=== PATIENT | male | born 1965 | race African-American/Black ===

== ENCOUNTER 2023-06-09 15:03 | Observation (INO) | payer OTHER ==
[2023-06-09 15:44] VITALS: BMI 25.1
[2023-06-09] MEDS ORDERED: SODIUM CHLORIDE 0.9% 500 ML INFUS.BAG IV ONE (15:55)
[2023-06-09] MEDS ORDERED: ACETAMINOPHEN 1000 MG/100 ML BAG IVPB ONE (15:55)
[2023-06-09 16:52] LABS: BASO % 0.8 % (0-2.0); EOS % 0.9 % (0-4.5); HEMATOCRIT 33.8 % (35.4-49); HEMOGLOBIN 10.9 GM/dL (11.7-16.9); LYMPH % 12.1 % (8-40); MCH 29.9 pg (25.7-33.7); MCHC 32.3 g/dl (32.0-35.9); MEAN CELL VOLUME 92.8 fl (80-96); MEAN PLT VOLUME 9.1 fl (7.5-11.1); MONO % 12.7 % (3.8-10.2); NEUT % 73.5 % (42.8-82.8); PLATELET COUNT 198 10^3/uL (134-434); RBC 3.64 M/mm3 (4.00-5.60); RDW 18.1 % (11.9-15.9); VENOUS BASE EXCESS 4.5 mmol/L (-2-2); VENOUS O2 SATURATION 25.4 % (70-80); VENOUS PCO2 49.7 mmHg (38-52); VENOUS PH 7.401 (7.310-7.410); WHITE BLOOD COUNT 10.3 K/mm3 (4.0-10.0)
[2023-06-09] MEDS ORDERED: ACETAMINOPHEN INJECTION 100 ML IVPB ONE (16:56)
[2023-06-09 17:02] LABS: INR 1.16 (0.83-1.09); PROTHROMBIN TIME (PATIENT) 13.4 SEC (9.7-13.0)
[2023-06-09 17:04] LABS: ACTIVATED PTT 34.6 SECONDS (25.2-36.5)
[2023-06-09 17:18] LABS: CHLORIDE 98 mmol/L (98-107); POTASSIUM 5.1 mmol/L (3.5-5.1); SODIUM 140 mmol/L (136-145)
[2023-06-09 17:20] LABS: ALBUMIN 2.7 g/dl (3.4-5.0); ANION GAP 11 mmol/L (4-13); BLOOD UREA NITROGEN 38.3 mg/dL (7-18); CALCIUM 9.1 mg/dL (8.5-10.1); CO2 30 mmol/L (21-32); GLUCOSE,RANDOM 80 mg/dL (74-106)
[2023-06-09 17:23] LABS: SGOT/AST 12 U/L (15-37); SGPT/ALT 8 U/L (13-61)
[2023-06-09 17:25] LABS: BILIRUBIN,TOTAL 0.4 mg/dL (0.2-1); TOT PROT 7.8 g/dl (6.4-8.2)
[2023-06-09 17:26] LABS: ALK PHOS 81 U/L (45-117)
[2023-06-10] MEDS: VITAMIN B COMP W-C 1 EA TABLET (NEPHRO-VITE) PO SCH (09:40)
[2023-06-10] MEDS: ASPIRIN 81 MG CHEWABLE TABLETS PO SCH (09:40)
[2023-06-10] MEDS: FERROUS SO4 325 MG TABLET (FP) PO SCH (09:40)
[2023-06-10] MEDS: SERTRALINE HCL 25 MG TABLET (FP) PO SCH (09:40)
[2023-06-10] MEDS: DIVALPROEX SODIUM 250 MG TABLET E.C. PO SCH ×2 (09:40→21:19)
[2023-06-10] MEDS: SEVELAMER CARBONATE 800 MG TAB (FP) PO SCH ×3 (09:40→17:36)
[2023-06-10] MEDS: GABAPENTIN 100 MG CAPSULE PO SCH ×3 (09:40→21:19)
[2023-06-10 10:58] LABS: CHLORIDE 103 mmol/L (98-107); SODIUM 143 mmol/L (136-145)
[2023-06-10 10:59] LABS: BASO % 0.7 % (0-2.0); EOS % 1.7 % (0-4.5); HEMATOCRIT 30.8 % (35.4-49); LYMPH % 13.4 % (8-40); MCH 30.4 pg (25.7-33.7); MCHC 32.5 g/dl (32.0-35.9); MEAN CELL VOLUME 93.5 fl (80-96); MEAN PLT VOLUME 9.5 fl (7.5-11.1); MONO % 13.6 % (3.8-10.2); NEUT % 70.6 % (42.8-82.8); PLATELET COUNT 173 10^3/uL (134-434); RDW 17.5 % (11.9-15.9); WHITE BLOOD COUNT 8.7 K/mm3 (4.0-10.0)
[2023-06-10 11:02] LABS: CALCIUM 8.7 mg/dL (8.5-10.1)
[2023-06-10 11:03] LABS: ALBUMIN 2.5 g/dl (3.4-5.0); ANION GAP 15 mmol/L (4-13); BLOOD UREA NITROGEN 46.5 mg/dL (7-18); CO2 25 mmol/L (21-32); GLUCOSE,RANDOM 76 mg/dL (74-106)
[2023-06-10 11:06] LABS: SGOT/AST 12 U/L (15-37); SGPT/ALT 7 U/L (13-61)
[2023-06-10 11:07] LABS: TOT PROT 6.8 g/dl (6.4-8.2)
[2023-06-10 11:08] LABS: BILIRUBIN,TOTAL 0.4 mg/dL (0.2-1)
[2023-06-10 11:09] LABS: ALK PHOS 70 U/L (45-117)
[2023-06-10 11:18] LABS: CREATININE 9.2 mg/dL (0.55-1.3)
[2023-06-10] MEDS: TICAGRELOR 60 MG TABLET PO SCH ×2 (12:02→21:20)
[2023-06-10] MEDS: POLYETHYLENE GLYCOL (HEALTHYLAX) 3350 17 GM PACKET PO SCH ×2 (13:15→21:18)
[2023-06-10] MEDS ORDERED: EPOETIN ALFA-EPBX 4,000 UNIT/ML VIAL SQ ONE (18:26)
[2023-06-10] MEDS: ATORVASTATIN CA 80 MG TABLET (FP) PO SCH (21:18)
[2023-06-10] MEDS: MIRTAZAPINE 15 MG TABLET (FP) PO SCH (21:18)
[2023-06-10] MEDS: MELATONIN 1 MG TABLET PO SCH (21:19)
[2023-06-11] MEDS: GABAPENTIN 100 MG CAPSULE PO SCH ×3 (05:16→22:00)
[2023-06-11] MEDS: POLYETHYLENE GLYCOL (HEALTHYLAX) 3350 17 GM PACKET PO SCH ×3 (05:16→22:00)
[2023-06-11 10:11] LABS: HEMATOCRIT 25.7 % (35.4-49); HEMOGLOBIN 8.4 GM/dL (11.7-16.9); MCH 30.1 pg (25.7-33.7); MCHC 32.6 g/dl (32.0-35.9); MEAN CELL VOLUME 92.6 fl (80-96); MEAN PLT VOLUME 9.4 fl (7.5-11.1); PLATELET COUNT 140 10^3/uL (134-434); RBC 2.78 M/mm3 (4.00-5.60); RDW 17.9 % (11.9-15.9); WHITE BLOOD COUNT 9.3 K/mm3 (4.0-10.0)
[2023-06-11] MEDS ORDERED: EPOETIN ALFA-EPBX 2,000 UNIT/ML VIAL IVPUSH ONE (10:15)
[2023-06-11] MEDS ORDERED: SODIUM CHLORIDE 250 ML IV PRN (10:15)
[2023-06-11] MEDS ORDERED: VANCOMYCIN/WATER FOR INJ (PEG) 1,000 MG/200 ML BAG IVPB ONE (10:16)
[2023-06-11 10:29] LABS: CHLORIDE 105 mmol/L (98-107); POTASSIUM 5.1 mmol/L (3.5-5.1); SODIUM 140 mmol/L (136-145)
[2023-06-11 10:30] LABS: CALCIUM 8.4 mg/dL (8.5-10.1)
[2023-06-11 10:31] LABS: ANION GAP 11 mmol/L (4-13); CO2 25 mmol/L (21-32); GLUCOSE,RANDOM 106 mg/dL (74-106); MAGNESIUM 2.6 mg/dL (1.8-2.4)
[2023-06-11 10:33] LABS: BLOOD UREA NITROGEN 56.8 mg/dL (7-18)
[2023-06-11 10:57] LABS: CREATININE 10.4 mg/dL (0.55-1.3)
[2023-06-11] MEDS: SEVELAMER CARBONATE 800 MG TAB (FP) PO SCH ×3 (13:11→16:30)
[2023-06-11] MEDS: DIVALPROEX SODIUM 250 MG TABLET E.C. PO SCH ×2 (13:11→21:59)
[2023-06-11] MEDS: FERROUS SO4 325 MG TABLET (FP) PO SCH (13:11)
[2023-06-11] MEDS: SERTRALINE HCL 25 MG TABLET (FP) PO SCH (13:12)
[2023-06-11] MEDS: VITAMIN B COMP W-C 1 EA TABLET (NEPHRO-VITE) PO SCH (13:12)
[2023-06-11] MEDS: ASPIRIN 81 MG CHEWABLE TABLETS PO SCH (13:12)
[2023-06-11] MEDS: TICAGRELOR 60 MG TABLET PO SCH ×2 (13:15→21:59)
[2023-06-11 21:04] LABS: SYPHILIS W/ RPR CONF REACTIVE (NONREACTIVE)
[2023-06-11] MEDS: MELATONIN 1 MG TABLET PO SCH (21:59)
[2023-06-11] MEDS: ATORVASTATIN CA 80 MG TABLET (FP) PO SCH (22:00)
[2023-06-11] MEDS: MIRTAZAPINE 15 MG TABLET (FP) PO SCH (22:00)
[2023-06-11 23:46] VITALS: BP 137/80; PULSE 72; RESP 18; TEMP 98.6
== END 2023-06-11 23:40 ==
LOC: JER 15:03 → JERBED 06-10 03:53 → J5S 06-10 06:35
PROVIDERS: ADMIT Internal Medicine; ATTEND Family Medicine
PROC: 3E033NZ Introduction of Analgesics, Hypnotics, Sedatives into Peripheral Vein, Percutaneous Approach (ICD-10-PCS; principal; 2023-06-10)
PROC: 3E033GC Introduction of Other Therapeutic Substance into Peripheral Vein, Percutaneous Approach (ICD-10-PCS; 2023-06-10)
PROC: 3E0337Z Introduction of Electrolytic and Water Balance Substance into Peripheral Vein, Percutaneous Approach (ICD-10-PCS; 2023-06-10)
PROC: 3E03329 Introduction of Other Anti-infective into Peripheral Vein, Percutaneous Approach (ICD-10-PCS; 2023-06-10)
DX: G93.41 Metabolic encephalopathy (principal); N18.6 End stage renal disease; I69.354 Hemiplegia and hemiparesis following cerebral infarction affecting left non-dominant side; E78.5 Hyperlipidemia, unspecified; G40.909 Epilepsy, unspecified, not intractable, without status epilepticus; I50.9 Heart failure, unspecified; K21.9 Gastro-esophageal reflux disease without esophagitis; Z99.2 Dependence on renal dialysis; F32.9 Major depressive disorder, single episode, unspecified; D64.9 Anemia, unspecified; K59.00 Constipation, unspecified; E11.9 Type 2 diabetes mellitus without complications; Z95.1 Presence of aortocoronary bypass graft; I25.10 Atherosclerotic heart disease of native coronary artery without angina pectoris; Z88.8 Allergy status to other drugs, medicaments and biological substances
CPT/HCPCS: 0241U-QW; 36415; 70450-TC; 71045-TC-FY; 74177-TC; 76705-TC; 80048; 80053; 80164; 82140; 82607; 82803; 83605; 83735; 84443; 84484; 85025; 85027; 85610; 85730; 86593; 86704; 86780; 86803; 86850; 86900; 86901; 87040; 87340; 87517; 93005; 93010; 96361; 96365; 96375; 99285-25; G0378; G0480; Q5106; Q9967

== ENCOUNTER 2023-09-08 14:02 | Inpatient (IN) | payer OTHER ==
[2023-09-08 14:54] LABS: BASO % 0.5 % (0-2.0); EOS % 0.5 % (0-4.5); HEMATOCRIT 35.4 % (35.4-49); HEMOGLOBIN 11.1 GM/dL (11.7-16.9); LYMPH % 9.5 % (8-40); MCH 28.2 pg (25.7-33.7); MCHC 31.4 g/dl (32.0-35.9); MEAN CELL VOLUME 89.8 fl (80-96); MEAN PLT VOLUME 7.8 fl (7.5-11.1); MONO % 6.5 % (3.8-10.2); PLATELET COUNT 289 10^3/uL (134-434); RBC 3.94 M/mm3 (4.00-5.60); RDW 18.9 % (11.9-15.9); WHITE BLOOD COUNT 9.6 K/mm3 (4.0-10.0)
[2023-09-08 15:02] LABS: INR 1.34 (0.83-1.09); PROTHROMBIN TIME (PATIENT) 15.5 SEC (9.7-13.0)
[2023-09-08 15:04] LABS: ACTIVATED PTT 38.8 SECONDS (25.2-36.5)
[2023-09-08 15:17] LABS: CHLORIDE 98 mmol/L (98-107); POTASSIUM 5.7 mmol/L (3.5-5.1); SODIUM 139 mmol/L (136-145)
[2023-09-08 15:19] LABS: ALBUMIN 1.9 g/dl (3.4-5.0); CALCIUM 9.2 mg/dL (8.5-10.1)
[2023-09-08 15:20] LABS: ANION GAP 16 mmol/L (4-13); CO2 26 mmol/L (21-32)
[2023-09-08 15:21] LABS: GLUCOSE,RANDOM 98 mg/dL (74-106)
[2023-09-08 15:23] LABS: SGOT/AST 70 U/L (15-37); SGPT/ALT 17 U/L (13-61)
[2023-09-08 15:24] VITALS: BMI 19.9
[2023-09-08 15:24] LABS: CHOLESTEROL 147 mg/dL (50-200); TOT PROT 7.6 g/dl (6.4-8.2)
[2023-09-08 15:25] LABS: LDL CHOLESTEROL (ONLY SJRH) 83 mg/dL (5-100)
[2023-09-08 15:26] LABS: BILIRUBIN,TOTAL 0.4 mg/dL (0.2-1)
[2023-09-08 15:27] LABS: HDL CHOLESTEROL 35 mg/dL (40-60)
[2023-09-08 15:28] LABS: ALK PHOS 81 U/L (45-117)
[2023-09-08 15:56] LABS: CREATININE 11.8 mg/dL (0.55-1.3)
[2023-09-08] MEDS ORDERED: SODIUM CHLORIDE 250 ML IV PRN (16:09)
[2023-09-08 17:02] LABS: CHLORIDE 97 mmol/L (98-107); POTASSIUM 4.4 mmol/L (3.5-5.1); SODIUM 139 mmol/L (136-145)
[2023-09-08 17:04] LABS: CALCIUM 8.7 mg/dL (8.5-10.1)
[2023-09-08 17:05] LABS: ANION GAP 17 mmol/L (4-13); BLOOD UREA NITROGEN 88.9 mg/dL (7-18); CO2 25 mmol/L (21-32); GLUCOSE,RANDOM 104 mg/dL (74-106)
[2023-09-08 17:44] LABS: CREATININE 11.9 mg/dL (0.55-1.3)
[2023-09-08] MEDS: VANCOMYCIN ORAL SOLUTION 125 MG/2.5 ML PO SCH (20:54)
[2023-09-08] MEDS ORDERED: DIVALPROEX SODIUM 250 MG TABLET E.C. ONE (22:21)
[2023-09-08] MEDS ORDERED: APIXABAN 2.5 MG TABLET ONE (22:21)
[2023-09-08] MEDS: APIXABAN 2.5 MG TABLET PO SCH (22:28)
[2023-09-08] MEDS: DIVALPROEX SODIUM 250 MG TABLET E.C. PO SCH (22:28)
[2023-09-09] MEDS ORDERED: DIVALPROEX SODIUM 250 MG TABLET E.C. ONE (06:19)
[2023-09-09 07:40] LABS: BASO % 0.7 % (0-2.0); HEMATOCRIT 32.9 % (35.4-49); HEMOGLOBIN 10.4 GM/dL (11.7-16.9); MCH 28.7 pg (25.7-33.7); MCHC 31.7 g/dl (32.0-35.9); MEAN CELL VOLUME 90.6 fl (80-96); MEAN PLT VOLUME 7.8 fl (7.5-11.1); MONO % 10.9 % (3.8-10.2); NEUT % 75.4 % (42.8-82.8); PLATELET COUNT 272 10^3/uL (134-434); RBC 3.64 M/mm3 (4.00-5.60); WHITE BLOOD COUNT 9.9 K/mm3 (4.0-10.0)
[2023-09-09 08:02] LABS: CHLORIDE 98 mmol/L (98-107); POTASSIUM 4.5 mmol/L (3.5-5.1); SODIUM 138 mmol/L (136-145)
[2023-09-09 08:04] LABS: ANION GAP 16 mmol/L (4-13); BLOOD UREA NITROGEN 99.4 mg/dL (7-18); CO2 24 mmol/L (21-32); GLUCOSE,RANDOM 113 mg/dL (74-106)
[2023-09-09 08:09] LABS: MAGNESIUM 3.4 mg/dL (1.8-2.4)
[2023-09-09 08:47] LABS: CREATININE 12.6 mg/dL (0.55-1.3)
[2023-09-09 08:53] LABS: CALCIUM 8.8 mg/dL (8.5-10.1)
[2023-09-09] MEDS: ASPIRIN COATED 81 MG TABLET.EC PO SCH (10:31)
[2023-09-09] MEDS: THIAMINE HCL 100 MG TABLET (FP) PO SCH (10:32)
[2023-09-09] MEDS: SERTRALINE HCL 25 MG TABLET (FP) PO SCH (10:32)
[2023-09-09 14:30] LABS: SYPHILIS W/ RPR CONF REACTIVE (NONREACTIVE)
[2023-09-09] MEDS ORDERED: SODIUM CHLORIDE 250 ML IV PRN (18:02)
[2023-09-09] MEDS: DIVALPROEX SODIUM 250 MG TABLET E.C. PO SCH (21:52)
[2023-09-10 07:58] LABS: BASO % 0.5 % (0-2.0); EOS % 0.8 % (0-4.5); HEMATOCRIT 29.8 % (35.4-49); HEMOGLOBIN 9.9 GM/dL (11.7-16.9); MCH 29.2 pg (25.7-33.7); MCHC 33.1 g/dl (32.0-35.9); MEAN CELL VOLUME 88.3 fl (80-96); MONO % 6.1 % (3.8-10.2); NEUT % 83.6 % (42.8-82.8); PLATELET COUNT 272 10^3/uL (134-434); RBC 3.37 M/mm3 (4.00-5.60); RDW 18.8 % (11.9-15.9); WHITE BLOOD COUNT 9.3 K/mm3 (4.0-10.0)
[2023-09-10 08:10] LABS: CHLORIDE 98 mmol/L (98-107); POTASSIUM 3.7 mmol/L (3.5-5.1); SODIUM 140 mmol/L (136-145)
[2023-09-10 08:12] LABS: ALBUMIN 1.8 g/dl (3.4-5.0); ANION GAP 12 mmol/L (4-13); CALCIUM 8.5 mg/dL (8.5-10.1); CO2 29 mmol/L (21-32)
[2023-09-10 08:13] LABS: GLUCOSE,RANDOM 85 mg/dL (74-106)
[2023-09-10 08:15] LABS: SGOT/AST 20 U/L (15-37)
[2023-09-10 08:16] LABS: SGPT/ALT 12 U/L (13-61)
[2023-09-10 08:17] LABS: BILIRUBIN,TOTAL 0.4 mg/dL (0.2-1)
[2023-09-10 08:18] LABS: ALK PHOS 84 U/L (45-117)
[2023-09-10 08:27] LABS: BLOOD UREA NITROGEN 53.9 mg/dL (7-18); CREATININE 8.1 mg/dL (0.55-1.3)
[2023-09-10] MEDS ORDERED: VALPROATE SODIUM 250 MG/5 ML UNIT DOSE CUP PO SCH (17:45)
[2023-09-10] MEDS: VALPROATE SODIUM 250 MG/5 ML UNIT DOSE CUP PO SCH (21:53)
[2023-09-11] MEDS: VITAMIN B COMP W-C 1 EA TABLET (NEPHRO-VITE) PO SCH (10:28)
[2023-09-11 12:01] LABS: TOTAL IRON BINDING CAPACITY 160 ug/dL (250-450)
[2023-09-11 12:12] LABS: HIV INTERPRETATION NEGATIVE (NEGATIVE)
[2023-09-11 14:07] LABS: IRON SERUM 32 ug/dL (50-175)
[2023-09-12 17:29] LABS: EPI CELLS 9 /uL (0-25.1); HYALINE CASTS 14 /uL (0-3.1); URINE APPEARANCE CLOUDY; URINE BACTERIA >9,000 /uL (0-1359); URINE BILIRUBIN NEGATIVE (NEGATIVE); URINE COLOR YELLOW; URINE GLUCOSE (UA) NEGATIVE (NEGATIVE); URINE KETONE TRACE (NEGATIVE); URINE LEUK ESTERASE 2+ (NEGATIVE); URINE NITRITE NEGATIVE (NEGATIVE); URINE PROTEIN 3+ (NEGATIVE); URINE RBC 7 /uL (0-23.9); URINE UROBILINOGEN 0.2 mg/dL (0.2-1.0); URINE WBC 519 /uL (0-25.8)
[2023-09-12 18:38] LABS: YEAST NONE SEEN (NEGATIVE)
[2023-09-13] MEDS ORDERED: SODIUM CHLORIDE 250 ML IV PRN (13:54)
[2023-09-13] MEDS: ACETAMINOPHEN 325 MG TABLET (FP) PO ONE (14:36)
[2023-09-14 13:27] LABS: HEMATOCRIT 29.7 % (35.4-49); HEMOGLOBIN 9.4 GM/dL (11.7-16.9); MCH 28.3 pg (25.7-33.7); MCHC 31.7 g/dl (32.0-35.9); MEAN CELL VOLUME 89.5 fl (80-96); MEAN PLT VOLUME 7.8 fl (7.5-11.1); PLATELET COUNT 286 10^3/uL (134-434); RBC 3.31 M/mm3 (4.00-5.60); RDW 18.1 % (11.9-15.9); WHITE BLOOD COUNT 11.7 K/mm3 (4.0-10.0)
[2023-09-14 13:50] LABS: CHLORIDE 102 mmol/L (98-107); POTASSIUM 3.9 mmol/L (3.5-5.1); SODIUM 143 mmol/L (136-145)
[2023-09-14 13:54] LABS: CALCIUM 9.2 mg/dL (8.5-10.1)
[2023-09-14 13:55] LABS: ALBUMIN 1.8 g/dl (3.4-5.0); ANION GAP 12 mmol/L (4-13); BLOOD UREA NITROGEN 72.6 mg/dL (7-18); CO2 28 mmol/L (21-32); GLUCOSE,RANDOM 117 mg/dL (74-106)
[2023-09-14 13:57] LABS: SGOT/AST 15 U/L (15-37)
[2023-09-14 13:58] LABS: SGPT/ALT 12 U/L (13-61)
[2023-09-14 13:59] LABS: BILIRUBIN,TOTAL 0.4 mg/dL (0.2-1); TOT PROT 6.7 g/dl (6.4-8.2)
[2023-09-14 14:00] LABS: ALK PHOS 74 U/L (45-117)
[2023-09-14 14:03] LABS: CREATININE 10.6 mg/dL (0.55-1.3)
[2023-09-14 14:25] LABS: BF GLUCOSE (CSF ONLY) 82 mg/dL (40-70)
[2023-09-14 14:57] LABS: CSF APPEARANCE CLEAR (CLEAR); CSF COLOR COLORLESS (COLORLESS); CSF WBC 1 mm3 (0-5)
[2023-09-14] MEDS: D5-1/2NS+20 MEQ KCL - 20 MEQ/1,000 ML INFUS.BAG IV SCH (16:20)
[2023-09-15] MEDS: APIXABAN 2.5 MG TABLET PO SCH (23:10)
[2023-09-16] MEDS ORDERED: SODIUM CHLORIDE 250 ML IV PRN (11:39)
[2023-09-16] MEDS: EPOETIN ALFA-EPBX 4,000 UNIT/ML VIAL IVPUSH ONE (13:00)
[2023-09-16] MEDS: PENICILLIN G BENZATHINE 2,400,000 UNIT/4 ML PFS IM ONE (14:00)
[2023-09-16 15:11] VITALS: BP 132/75; PULSE 82; RESP 17; TEMP 98
[2023-09-20 19:09] LABS: MUMPS AB IGG CSF < 5.0 AU/mL (<=10.9)
== END 2023-09-16 19:02 | DRG 884 ==
LOC: JER 14:02 → JERBED 16:19 → J4S 09-09 15:50 → OBSVTOIN 09-14 07:15
PROVIDERS: ADMIT Internal Medicine; ATTEND Internal Medicine
PROC: 009U3ZZ Drainage of Spinal Canal, Percutaneous Approach (ICD-10-PCS; principal; 2023-09-14)
PROC: B01BZZZ Fluoroscopy of Spinal Cord (ICD-10-PCS; 2023-09-14)
PROC: 5A1D70Z Performance of Urinary Filtration, Intermittent, Less than 6 Hours Per Day (ICD-10-PCS; 2023-09-14)
PROC: 5A1D70Z Performance of Urinary Filtration, Intermittent, Less than 6 Hours Per Day (ICD-10-PCS; 2023-09-16)
DX: F03.90 Unspecified dementia, unspecified severity, without behavioral disturbance, psychotic disturbance, mood disturbance, and anxiety (principal); N18.6 End stage renal disease; A04.72 Enterocolitis due to Clostridium difficile, not specified as recurrent; I13.2 Hypertensive heart and chronic kidney disease with heart failure and with stage 5 chronic kidney disease, or end stage renal disease; I50.32 Chronic diastolic (congestive) heart failure; I69.354 Hemiplegia and hemiparesis following cerebral infarction affecting left non-dominant side; R41.82 Altered mental status, unspecified; G62.9 Polyneuropathy, unspecified; E11.42 Type 2 diabetes mellitus with diabetic polyneuropathy; I25.10 Atherosclerotic heart disease of native coronary artery without angina pectoris; E11.22 Type 2 diabetes mellitus with diabetic chronic kidney disease; Z99.2 Dependence on renal dialysis; E78.5 Hyperlipidemia, unspecified; G40.909 Epilepsy, unspecified, not intractable, without status epilepticus; F32.9 Major depressive disorder, single episode, unspecified; M54.50 Low back pain, unspecified
CPT/HCPCS: 36415; 62272; 70450-TC; 70496-TC; 70498-TC; 71045-TC-FY; 80048; 80053; 80061; 80164; 81003; 82272; 82550; 82553; 82607; 82728; 82945; 82962; 83036; 83540; 83550; 83735; 84157; 84443; 84466; 84484; 85025; 85027; 85610; 85730; 86592; 86593; 86694; 86705; 86735; 86765; 86780; 86787; 86788; 86789; 86803; 86850; 86900; 86901; 87040; 87070; 87205; 87340; 87389; 87517; 93306-TC; 93880-TC; 99285-25; G0378; G0480; Q5106

== ENCOUNTER 2024-01-01 10:05 | Inpatient (IN) | payer OTHER ==
[2024-01-01] MEDS ORDERED: DEXTROSE 50%-WATER 25 GM/50 ML DISP.SYRIN ONE ×2 (10:17→10:22)
[2024-01-01] MEDS ORDERED: ACETAMINOPHEN INJECTION 100 ML IVPB ONE (10:26)
[2024-01-01 10:45] LABS: VENOUS BASE EXCESS -0.9 mmol/L (-2-2); VENOUS PCO2 39.1 mmHg (38-52); VENOUS PH 7.401 (7.310-7.410)
[2024-01-01 10:58] LABS: HEMATOCRIT 28.1 % (35.4-49); HEMOGLOBIN 8.9 GM/dL (11.7-16.9); MCH 27.3 pg (25.7-33.7); MCHC 31.6 g/dl (32.0-35.9); MEAN CELL VOLUME 86.4 fl (80-96); MEAN PLT VOLUME 7.1 fl (7.5-11.1); PLATELET COUNT 193 10^3/uL (134-434); RBC 3.25 M/mm3 (4.00-5.60); RDW 19.5 % (11.9-15.9); WHITE BLOOD COUNT 6.9 K/mm3 (4.0-10.0)
[2024-01-01 11:02] LABS: PROTHROMBIN TIME (PATIENT) 87.5 SEC (9.7-13.0)
[2024-01-01] MEDS: ACETAMINOPHEN 1000 MG/100 ML BAG IVPB ONE ×2 (11:04→22:10)
[2024-01-01 11:05] LABS: ACTIVATED PTT 67.7 SECONDS (25.2-36.5)
[2024-01-01] MEDS: DEXTROSE 50%-WATER 25 GM/50 ML DISP.SYRIN IVPUSH ONE ×2 (11:05)
[2024-01-01 11:10] LABS: EPI CELLS >36 /uL (0-25.1); HYALINE CASTS 2 /uL (0-3.1); URINE APPEARANCE TURBID; URINE BILIRUBIN NEGATIVE (NEGATIVE); URINE COLOR YELLOW; URINE GLUCOSE (UA) NEGATIVE (NEGATIVE); URINE KETONE TRACE (NEGATIVE); URINE LEUK ESTERASE TRACE (NEGATIVE); URINE NITRITE NEGATIVE (NEGATIVE); URINE PROTEIN 2+ (NEGATIVE); URINE UROBILINOGEN 0.2 mg/dL (0.2-1.0); URINE WBC 122 /uL (0-25.8)
[2024-01-01 11:11] LABS: CHLORIDE 103 mmol/L (98-107); SODIUM 140 mmol/L (136-145)
[2024-01-01 11:12] LABS: CALCIUM 8.5 mg/dL (8.5-10.1)
[2024-01-01 11:13] LABS: ALBUMIN 1.2 g/dl (3.4-5.0); ANION GAP 12 mmol/L (4-13); CO2 24 mmol/L (21-32); INR 8.23 (0.83-1.09)
[2024-01-01 11:14] LABS: BLOOD UREA NITROGEN 46.8 mg/dL (7-18); GLUCOSE,RANDOM 193 mg/dL (74-106)
[2024-01-01 11:16] LABS: CREATININE 7.1 mg/dL (0.55-1.3); SGOT/AST 17 U/L (15-37)
[2024-01-01 11:17] LABS: CHOLESTEROL 106 mg/dL (50-200)
[2024-01-01 11:18] LABS: TOT PROT 6.5 g/dl (6.4-8.2)
[2024-01-01 11:19] LABS: BILIRUBIN,TOTAL 0.4 mg/dL (0.2-1); LDL CHOLESTEROL (ONLY SJRH) 55 mg/dL (5-100)
[2024-01-01 11:20] LABS: ALK PHOS 75 U/L (45-117); HDL CHOLESTEROL 23 mg/dL (40-60)
[2024-01-01 11:22] LABS: SGPT/ALT < 6 U/L (13-61)
[2024-01-01] MEDS ORDERED: PIPERACILLIN/TAZOB 4.5 GM 4.5 GM/100 ML BAG IVPB ONE (11:25)
[2024-01-01] MEDS: PIPERACILLIN/TAZOB 4.5 GM 4.5 GM in DEXTROSE 5%-WATER 100 ML IVPB ONE (11:26)
[2024-01-01 11:31] LABS: URINE BACTERIA 35 /uL (0-1359); URINE RBC 49 /uL (0-23.9)
[2024-01-01] MEDS ORDERED: VANCOMYCIN 1 GRAM (PRE-DOCKED) 1,000 MG/250 ML BAG IVPB ONE (11:31)
[2024-01-01] MEDS: VANCOMYCIN 1,000 MG in DEXTROSE 5%-WATER - 250 ML IVPB ONE (11:32)
[2024-01-01 11:34] LABS: ANISOCYTOSIS 1+; MACROCYTOSIS 1+
[2024-01-01] MEDS ORDERED: SODIUM CHLORIDE 250 ML IV PRN (13:48)
[2024-01-02] MEDS: PIPERACILLIN/TAZOB 3.375 GM 3.375 GM in DEXTROSE 5%-WATER - 50 ML IVPB SCH ×2 (07:37→13:32)
[2024-01-02 08:12] LABS: HEMATOCRIT 25.4 % (35.4-49); HEMOGLOBIN 8.2 GM/dL (11.7-16.9); MCH 27.8 pg (25.7-33.7); MCHC 32.3 g/dl (32.0-35.9); MEAN CELL VOLUME 86.1 fl (80-96); MEAN PLT VOLUME 7.6 fl (7.5-11.1); PLATELET COUNT 193 10^3/uL (134-434); RBC 2.95 M/mm3 (4.00-5.60); RDW 19.2 % (11.9-15.9); WHITE BLOOD COUNT 6.8 K/mm3 (4.0-10.0)
[2024-01-02 09:23] LABS: ALBUMIN 1.3 g/dl (3.4-5.0); ALK PHOS 78 U/L (45-117); ANION GAP 8 mmol/L (4-13); BILIRUBIN,TOTAL 0.8 mg/dL (0.2-1); BLOOD UREA NITROGEN 29.2 mg/dL (7-18); CALCIUM 8.9 mg/dL (8.5-10.1); CHLORIDE 103 mmol/L (98-107); CO2 30 mmol/L (21-32); CREATININE 4.6 mg/dL (0.55-1.3); GLUCOSE,RANDOM 88 mg/dL (74-106); MAGNESIUM 2.2 mg/dL (1.8-2.4); PHOSPHOROUS 3.1 mg/dL (2.5-4.9); POTASSIUM 3.5 mmol/L (3.5-5.1); SGOT/AST 45 U/L (15-37); SGPT/ALT < 6 U/L (13-61); SODIUM 141 mmol/L (136-145); TOT PROT 7.1 g/dl (6.4-8.2)
[2024-01-02 09:25] LABS: ANISOCYTOSIS 2+; MACROCYTOSIS 0
[2024-01-02] MEDS: SERTRALINE HCL 25 MG TABLET (FP) PO SCH (10:21)
[2024-01-02] MEDS: APIXABAN 2.5 MG TABLET PO SCH (10:21)
[2024-01-02] MEDS: VANCOMYCIN/WATER FOR INJ (PEG) 1,000 MG/200 ML BAG IVPB ONE (13:27)
[2024-01-02] MEDS: VALPROATE SODIUM 250 MG/5 ML UNIT DOSE CUP PO SCH (13:28)
[2024-01-02] MEDS ORDERED: DIVALPROEX SODIUM 500 MG TABLET E.C. PO SCH (14:00)
[2024-01-02] MEDS: SODIUM CHLORIDE 250 ML IV STA ×2 (14:40→20:43)
[2024-01-02] MEDS: PIPERACILLIN/TAZOB 2.25 GM 2.25 GM in DEXTROSE 5%-WATER - 50 ML IVPB SCH (17:25)
[2024-01-04 10:24] LABS: BASO % 1.1 % (0-2.0); EOS % 1.6 % (0-4.5); HEMOGLOBIN 8.6 GM/dL (11.7-16.9); LYMPH % 14.9 % (8-40); MCH 26.9 pg (25.7-33.7); MCHC 31.7 g/dl (32.0-35.9); MEAN CELL VOLUME 84.8 fl (80-96); MEAN PLT VOLUME 7.6 fl (7.5-11.1); NEUT % 76.4 % (42.8-82.8); PLATELET COUNT 167 10^3/uL (134-434); RBC 3.18 M/mm3 (4.00-5.60); RDW 19.4 % (11.9-15.9)
[2024-01-04 10:35] LABS: PROTHROMBIN TIME (PATIENT) 87.9 SEC (9.7-13.0)
[2024-01-04 10:37] LABS: INR 8.12 (0.83-1.09)
[2024-01-04 11:41] LABS: CHLORIDE 101 mmol/L (98-107); POTASSIUM 3.4 mmol/L (3.5-5.1); SODIUM 137 mmol/L (136-145)
[2024-01-04 11:44] LABS: CALCIUM 8.5 mg/dL (8.5-10.1)
[2024-01-04 11:45] LABS: ALBUMIN 1.3 g/dl (3.4-5.0); ANION GAP 9 mmol/L (4-13); BLOOD UREA NITROGEN 39.7 mg/dL (7-18); CO2 28 mmol/L (21-32); GLUCOSE,RANDOM 109 mg/dL (74-106)
[2024-01-04 11:47] LABS: SGPT/ALT < 6 U/L (13-61); TOTAL IRON BINDING CAPACITY 90 ug/dL (250-450)
[2024-01-04 11:48] LABS: CREATININE 5.2 mg/dL (0.55-1.3); IRON SERUM 36 ug/dL (50-175); SGOT/AST 24 U/L (15-37)
[2024-01-04 11:49] LABS: BILIRUBIN,TOTAL 0.4 mg/dL (0.2-1)
[2024-01-04 12:09] LABS: ACTIVATED PTT 98.8 SECONDS (25.2-36.5)
[2024-01-04 12:13] LABS: ALK PHOS 100 U/L (45-117)
[2024-01-04] MEDS ORDERED: SODIUM CHLORIDE 250 ML IV PRN (14:00)
[2024-01-04] MEDS: PHYTONADIONE 10 MG/1 ML AMP IVPB ONE (14:16)
[2024-01-04] MEDS ORDERED: PIPERACILLIN/TAZOBACTAM 2.25 GM VIAL IVPB ONE (15:55)
[2024-01-04] MEDS: VITAMIN B COMP W-C 1 EA TABLET (NEPHRO-VITE) PO SCH (15:57)
[2024-01-04] MEDS: COLLAGENASE CLOSTRIDIUM HIST. 30 GRAMS TUBE TP SCH (15:58)
[2024-01-04 17:20] LABS: HEMATOCRIT 26.5 % (35.4-49); HEMOGLOBIN 8.4 GM/dL (11.7-16.9); MCH 27.3 pg (25.7-33.7); MCHC 31.8 g/dl (32.0-35.9); MEAN CELL VOLUME 85.9 fl (80-96); MEAN PLT VOLUME 7.8 fl (7.5-11.1); PLATELET COUNT 187 10^3/uL (134-434); RBC 3.08 M/mm3 (4.00-5.60); RDW 19.4 % (11.9-15.9); WHITE BLOOD COUNT 8.4 K/mm3 (4.0-10.0)
[2024-01-04 17:29] LABS: INR 2.52 (0.83-1.09); PROTHROMBIN TIME (PATIENT) 28.2 SEC (9.7-13.0)
[2024-01-04 17:32] LABS: ACTIVATED PTT 57.1 SECONDS (25.2-36.5)
[2024-01-04] MEDS: ACETAMINOPHEN 325 MG TABLET (FP) PO PRN (18:33)
[2024-01-05 07:59] LABS: HEMATOCRIT 22.4 % (35.4-49); HEMOGLOBIN 7.1 GM/dL (11.7-16.9); MCH 27.2 pg (25.7-33.7); MCHC 31.8 g/dl (32.0-35.9); MEAN CELL VOLUME 85.5 fl (80-96); MEAN PLT VOLUME 7.8 fl (7.5-11.1); PLATELET COUNT 147 10^3/uL (134-434); RBC 2.62 M/mm3 (4.00-5.60); RDW 18.7 % (11.9-15.9)
[2024-01-05 08:09] LABS: CHLORIDE 102 mmol/L (98-107); POTASSIUM 3.3 mmol/L (3.5-5.1); SODIUM 142 mmol/L (136-145)
[2024-01-05 08:17] LABS: ANION GAP 7 mmol/L (4-13); BLOOD UREA NITROGEN 26.1 mg/dL (7-18); CALCIUM 8.7 mg/dL (8.5-10.1); CO2 33 mmol/L (21-32); GLUCOSE,RANDOM 82 mg/dL (74-106)
[2024-01-05 08:20] LABS: CREATININE 4.4 mg/dL (0.55-1.3); SGOT/AST 15 U/L (15-37)
[2024-01-05 08:21] LABS: SGPT/ALT < 6 U/L (13-61)
[2024-01-05 08:22] LABS: BILIRUBIN,TOTAL 0.5 mg/dL (0.2-1); TOT PROT 6.6 g/dl (6.4-8.2)
[2024-01-05 08:23] LABS: ALK PHOS 103 U/L (45-117)
[2024-01-05 08:24] LABS: INR 1.14 (0.83-1.09); PROTHROMBIN TIME (PATIENT) 12.8 SEC (9.7-13.0)
[2024-01-05 08:27] LABS: ALBUMIN 1.6 g/dl (3.4-5.0)
[2024-01-05] MEDS: VANCOMYCIN/WATER FOR INJ (PEG) 1,000 MG/200 ML BAG IVPB ONE (13:02)
[2024-01-05] MEDS: ACETAMINOPHEN 325 MG TABLET (FP) PO ONE (15:21)
[2024-01-05] MEDS: oxyCODONE HCL 5 MG TABLET PO ONE (15:21)
[2024-01-06] MEDS ORDERED: SODIUM CHLORIDE 250 ML IV PRN ×2 (08:02→10:10)
[2024-01-06] MEDS ORDERED: LIDOCAINE HCL 1%, 10 MG/ML (20ML VIAL) ONE (08:41)
[2024-01-06] MEDS ORDERED: HEPARIN NA (PORCINE) 5,000 UNITS/ML 1ML VIAL ONE (08:41)
[2024-01-06] MEDS ORDERED: PROMETHAZINE HCL 25 MG/1 ML VIAL IVPB PRN ×2 (08:57→10:10)
[2024-01-06] MEDS ORDERED: ONDANSETRON 4 MG/2 ML VIAL IVPUSH PRN ×2 (08:57→10:10)
[2024-01-06] MEDS ORDERED: MIDAZOLAM HCL 2 MG/2 ML SINGLE DOSE VIAL ONE (09:08)
[2024-01-06] MEDS ORDERED: LIDOCAINE HCL/PF 2% SDV 5ML VIAL ONE (09:29)
[2024-01-06] MEDS ORDERED: PROPOFOL 20 ML ONE (09:30)
[2024-01-06] MEDS: SODIUM CHLORIDE 1,000 ML IV SCH ×2 (10:05→12:57)
[2024-01-06 12:50] LABS: HEMATOCRIT 21.4 % (35.4-49); MCHC 31.2 g/dl (32.0-35.9); MEAN CELL VOLUME 86.4 fl (80-96); MEAN PLT VOLUME 7.9 fl (7.5-11.1); PLATELET COUNT 167 10^3/uL (134-434); RBC 2.47 M/mm3 (4.00-5.60); RDW 18.8 % (11.9-15.9); WHITE BLOOD COUNT 7.9 K/mm3 (4.0-10.0)
[2024-01-06 12:51] LABS: HEMOGLOBIN 6.7 GM/dL (11.7-16.9)
[2024-01-06 13:06] LABS: POTASSIUM 3.7 mmol/L (3.5-5.1)
[2024-01-06 13:25] LABS: BLOOD UREA NITROGEN 34.8 mg/dL (7-18); CALCIUM 8.5 mg/dL (8.5-10.1)
[2024-01-06 13:28] LABS: CREATININE 5.7 mg/dL (0.55-1.3)
[2024-01-06] MEDS: EPOETIN ALFA-EPBX 10,000 UNIT/ML VIAL IVPUSH ONE ×2 (15:37→17:49)
[2024-01-06 16:08] VITALS: BMI 19.9
[2024-01-06] MEDS: AMPICILLIN NA/SULBACTAM NA 3 GM in SODIUM CHLORIDE 100 ML IVPB SCH (16:15)
[2024-01-06] MEDS: VALPROATE SODIUM 250 MG/5 ML UNIT DOSE CUP PO SCH (16:15)
[2024-01-06] MEDS ORDERED: PIPERACILLIN/TAZOB 2.25 GM 2.25 GM in DEXTROSE 5%-WATER - 50 ML IVPB SCH (18:00)
[2024-01-06] MEDS: DIVALPROEX SODIUM 500 MG TABLET E.C. PO SCH (21:26)
[2024-01-06] MEDS: APIXABAN 2.5 MG TABLET PO SCH (21:27)
[2024-01-06] MEDS: ACETAMINOPHEN 325 MG TABLET (FP) PO PRN (21:27)
[2024-01-07 08:50] LABS: BASO % 0.8 % (0-2.0); EOS % 2.9 % (0-4.5); HEMATOCRIT 27.5 % (35.4-49); HEMOGLOBIN 9.2 GM/dL (11.7-16.9); LYMPH % 16.4 % (8-40); MCH 28.5 pg (25.7-33.7); MCHC 33.4 g/dl (32.0-35.9); MEAN CELL VOLUME 85.1 fl (80-96); MEAN PLT VOLUME 8.1 fl (7.5-11.1); MONO % 14.9 % (3.8-10.2); PLATELET COUNT 196 10^3/uL (134-434); RBC 3.23 M/mm3 (4.00-5.60); RDW 18.2 % (11.9-15.9); WHITE BLOOD COUNT 9.1 K/mm3 (4.0-10.0)
[2024-01-07 09:02] LABS: CALCIUM 8.1 mg/dL (8.5-10.1)
[2024-01-07 09:06] LABS: CREATININE 3.5 mg/dL (0.55-1.3)
[2024-01-07] MEDS: VITAMIN B COMP W-C 1 EA TABLET (NEPHRO-VITE) PO SCH (09:45)
[2024-01-07] MEDS: SERTRALINE HCL 25 MG TABLET (FP) PO SCH (09:45)
[2024-01-07] MEDS: COLLAGENASE CLOSTRIDIUM HIST. 30 GRAMS TUBE TP SCH (09:46)
[2024-01-07] MEDS: POTASSIUM CHLORIDE ORAL LIQUID 20 MEQ/15 ML PO ONE (11:14)
[2024-01-08] MEDS: EPOETIN ALFA-EPBX 10,000 UNIT/ML VIAL IVPUSH ONE (09:01)
[2024-01-08 09:12] LABS: HEMATOCRIT 26.7 % (35.4-49); HEMOGLOBIN 8.8 GM/dL (11.7-16.9); MCH 27.8 pg (25.7-33.7); MCHC 32.8 g/dl (32.0-35.9); MEAN CELL VOLUME 84.8 fl (80-96); MEAN PLT VOLUME 7.6 fl (7.5-11.1); PLATELET COUNT 226 10^3/uL (134-434); RBC 3.15 M/mm3 (4.00-5.60); RDW 18.8 % (11.9-15.9)
[2024-01-08 09:32] LABS: POTASSIUM 3.1 mmol/L (3.5-5.1)
[2024-01-08 09:33] LABS: CALCIUM 7.9 mg/dL (8.5-10.1)
[2024-01-08 09:34] LABS: BLOOD UREA NITROGEN 19.1 mg/dL (7-18)
[2024-01-08 09:37] LABS: CREATININE 3.1 mg/dL (0.55-1.3)
[2024-01-08] MEDS ORDERED: SODIUM CHLORIDE 250 ML IV PRN (10:00)
[2024-01-08] MEDS: POTASSIUM CHLORIDE TABS 20 MEQ TABLET.ER (FP) PO ONE (11:42)
[2024-01-08 15:39] VITALS: RESP 18
[2024-01-08 17:34] VITALS: BP 174/93; PULSE 69; TEMP 99.1
== END 2024-01-08 17:38 | DRG 981 ==
LOC: JER 10:05 → JERBED 12:44 → J2W 19:03
PROVIDERS: ADMIT Internal Medicine; ATTEND Internal Medicine
PROC: 5A1D70Z Performance of Urinary Filtration, Intermittent, Less than 6 Hours Per Day (ICD-10-PCS; principal; 2024-01-01)
PROC: 5A1D70Z Performance of Urinary Filtration, Intermittent, Less than 6 Hours Per Day (ICD-10-PCS; 2024-01-04)
PROC: 30233N1 Transfusion of Nonautologous Red Blood Cells into Peripheral Vein, Percutaneous Approach (ICD-10-PCS; 2024-01-04)
PROC: 057Y3DZ Dilation of Upper Vein with Intraluminal Device, Percutaneous Approach (ICD-10-PCS; 2024-01-06)
PROC: 5A1D70Z Performance of Urinary Filtration, Intermittent, Less than 6 Hours Per Day (ICD-10-PCS; 2024-01-06)
PROC: 30233L1 Transfusion of Nonautologous Fresh Plasma into Peripheral Vein, Percutaneous Approach (ICD-10-PCS; 2024-01-06)
PROC: B50NYZZ Plain Radiography of Left Upper Extremity Veins using Other Contrast (ICD-10-PCS; 2024-01-06)
PROC: 5A1D70Z Performance of Urinary Filtration, Intermittent, Less than 6 Hours Per Day (ICD-10-PCS; 2024-01-08)
DX: J18.9 Pneumonia, unspecified organism (principal); G93.41 Metabolic encephalopathy; N18.6 End stage renal disease; I69.354 Hemiplegia and hemiparesis following cerebral infarction affecting left non-dominant side; D68.9 Coagulation defect, unspecified; J98.11 Atelectasis; N39.0 Urinary tract infection, site not specified; M86.672 Other chronic osteomyelitis, left ankle and foot; M86.671 Other chronic osteomyelitis, right ankle and foot; T82.858A Stenosis of other vascular prosthetic devices, implants and grafts, initial encounter; I13.2 Hypertensive heart and chronic kidney disease with heart failure and with stage 5 chronic kidney disease, or end stage renal disease; M54.50 Low back pain, unspecified; E11.22 Type 2 diabetes mellitus with diabetic chronic kidney disease; K21.9 Gastro-esophageal reflux disease without esophagitis; G40.909 Epilepsy, unspecified, not intractable, without status epilepticus; E11.51 Type 2 diabetes mellitus with diabetic peripheral angiopathy without gangrene; E78.00 Pure hypercholesterolemia, unspecified; I50.9 Heart failure, unspecified; K59.00 Constipation, unspecified; I25.10 Atherosclerotic heart disease of native coronary artery without angina pectoris; F17.210 Nicotine dependence, cigarettes, uncomplicated; F32.9 Major depressive disorder, single episode, unspecified; R41.82 Altered mental status, unspecified; S91.302A Unspecified open wound, left foot, initial encounter; S91.301A Unspecified open wound, right foot, initial encounter; E11.69 Type 2 diabetes mellitus with other specified complication; B95.61 Methicillin susceptible Staphylococcus aureus infection as the cause of diseases classified elsewhere; Y84.8 Other medical procedures as the cause of abnormal reaction of the patient, or of later complication, without mention of misadventure at the time of the procedure; Z99.2 Dependence on renal dialysis; Z95.1 Presence of aortocoronary bypass graft
CPT/HCPCS: 0241U-QW; 36415; 36430; 70450-TC; 71045-TC-FY; 73630-TC-LT; 73718-TC-LT; 76000-TC-FY; 80048; 80053; 80061; 81003; 82272; 82550; 82728; 82803; 82962; 83036; 83540; 83550; 83605; 83735; 84100; 84484; 85025; 85027; 85220; 85240; 85610; 85730; 86803; 86850; 86900; 86901; 86922; 87040; 87045; 87046; 87070; 87086; 87186; 87205; 87209; 87324; 87340; 87449; 93005; 93010; 93990-TC; 94010; 94760; 99285-25; C1876; G0480; J0131; J1644; P9017; P9058; Q5106

== ENCOUNTER 2024-01-15 10:36 | Inpatient (IN) | payer OTHER ==
[2024-01-15 11:03] VITALS: BMI 18.2
[2024-01-15] MEDS: SODIUM CHLORIDE 1,000 ML IV SCH (12:20)
[2024-01-15 12:30] LABS: BASO % 1.1 % (0-2.0); EOS % 1.4 % (0-4.5); HEMATOCRIT 29.5 % (35.4-49); HEMOGLOBIN 9.3 GM/dL (11.7-16.9); LYMPH % 15.4 % (8-40); MCH 27.2 pg (25.7-33.7); MCHC 31.5 g/dl (32.0-35.9); MEAN CELL VOLUME 86.5 fl (80-96); MEAN PLT VOLUME 7.6 fl (7.5-11.1); NEUT % 71.1 % (42.8-82.8); PLATELET COUNT 247 10^3/uL (134-434); RBC 3.41 M/mm3 (4.00-5.60); RDW 18.6 % (11.9-15.9); WHITE BLOOD COUNT 7.6 K/mm3 (4.0-10.0)
[2024-01-15 12:37] LABS: INR 1.55 (0.83-1.09); PROTHROMBIN TIME (PATIENT) 17.3 SEC (9.7-13.0)
[2024-01-15 12:39] LABS: ACTIVATED PTT 41.6 SECONDS (25.2-36.5)
[2024-01-15 12:49] LABS: CHLORIDE 101 mmol/L (98-107); POTASSIUM 3.3 mmol/L (3.5-5.1); SODIUM 137 mmol/L (136-145)
[2024-01-15 12:52] LABS: CALCIUM 8.1 mg/dL (8.5-10.1)
[2024-01-15 12:53] LABS: ALBUMIN 1.6 g/dl (3.4-5.0); ANION GAP 7 mmol/L (4-13); BLOOD UREA NITROGEN 5.4 mg/dL (7-18); CO2 29 mmol/L (21-32); GLUCOSE,RANDOM 94 mg/dL (74-106)
[2024-01-15 12:56] LABS: CREATININE 2.1 mg/dL (0.55-1.3); SGOT/AST 11 U/L (15-37)
[2024-01-15 12:57] LABS: CHOLESTEROL 144 mg/dL (50-200); TOT PROT 7.8 g/dl (6.4-8.2)
[2024-01-15 12:58] LABS: BILIRUBIN,TOTAL 0.3 mg/dL (0.2-1); LDL CHOLESTEROL (ONLY SJRH) 68 mg/dL (5-100)
[2024-01-15 12:59] LABS: ALK PHOS 112 U/L (45-117); HDL CHOLESTEROL 48 mg/dL (40-60)
[2024-01-15 13:38] LABS: SGPT/ALT < 6 U/L (13-61)
[2024-01-15] MEDS ORDERED: DIVALPROEX SODIUM 250 MG TABLET E.C. ONE (15:13)
[2024-01-15] MEDS: DIVALPROEX SODIUM 250 MG TABLET E.C. PO ONE (19:41)
[2024-01-15] MEDS ORDERED: VALPROATE SODIUM 500 MG/5 ML VIAL IVPB SCH (22:32)
[2024-01-16] MEDS ORDERED: VALPROATE SODIUM 500 MG/5 ML VIAL ONE (00:24)
[2024-01-16] MEDS: VALPROATE SODIUM INJECTION 750 MG in SODIUM CHLORIDE 100 ML IVPB SCH (00:25)
[2024-01-16 08:38] LABS: BASO % 1.4 % (0-2.0); EOS % 1.6 % (0-4.5); HEMATOCRIT 28.4 % (35.4-49); LYMPH % 19.3 % (8-40); MCH 27.4 pg (25.7-33.7); MCHC 31.5 g/dl (32.0-35.9); MEAN PLT VOLUME 8.4 fl (7.5-11.1); MONO % 14.4 % (3.8-10.2); NEUT % 63.3 % (42.8-82.8); PLATELET COUNT 192 10^3/uL (134-434); RBC 3.27 M/mm3 (4.00-5.60); RDW 18.4 % (11.9-15.9); WHITE BLOOD COUNT 5.6 K/mm3 (4.0-10.0)
[2024-01-16 08:55] LABS: CHLORIDE 104 mmol/L (98-107); POTASSIUM 3.8 mmol/L (3.5-5.1); SODIUM 138 mmol/L (136-145)
[2024-01-16 09:03] LABS: ALBUMIN 1.4 g/dl (3.4-5.0); ANION GAP 5 mmol/L (4-13); CALCIUM 8.3 mg/dL (8.5-10.1); CO2 29 mmol/L (21-32); GLUCOSE,RANDOM 55 mg/dL (74-106)
[2024-01-16 09:04] LABS: LDL CHOLESTEROL (ONLY SJRH) 64 mg/dL (5-100)
[2024-01-16 09:05] LABS: ALK PHOS 101 U/L (45-117); BILIRUBIN,TOTAL 0.3 mg/dL (0.2-1); CHOLESTEROL 134 mg/dL (50-200); HDL CHOLESTEROL 40 mg/dL (40-60); SGOT/AST 8 U/L (15-37)
[2024-01-16 09:06] LABS: CREATININE 3.2 mg/dL (0.55-1.3); SGPT/ALT < 6 U/L (13-61)
[2024-01-16 09:10] LABS: TOT PROT 6.7 g/dl (6.4-8.2)
[2024-01-16] MEDS: SERTRALINE HCL 25 MG TABLET (FP) PO SCH (10:46)
[2024-01-16] MEDS: THIAMINE 100 MG TABLET PO SCH (10:47)
[2024-01-16] MEDS: VITAMIN B COMP W-C 1 EA TABLET (NEPHRO-VITE) PO SCH (10:47)
[2024-01-16] MEDS: APIXABAN 2.5 MG TABLET PO SCH (10:47)
[2024-01-17] MEDS: AMINO ACIDS/PROTEIN HYDROLYS 30 ML LIQUID.PKT PO SCH (17:50)
[2024-01-18 06:39] LABS: EPI CELLS 7 /uL (0-25.1); HYALINE CASTS 10 /uL (0-3.1); URINE APPEARANCE CLOUDY; URINE BILIRUBIN NEGATIVE (NEGATIVE); URINE COLOR YELLOW; URINE GLUCOSE (UA) NEGATIVE (NEGATIVE); URINE KETONE TRACE (NEGATIVE); URINE LEUK ESTERASE 2+ (NEGATIVE); URINE NITRITE NEGATIVE (NEGATIVE); URINE PROTEIN 2+ (NEGATIVE); URINE RBC 16 /uL (0-23.9); URINE UROBILINOGEN 0.2 mg/dL (0.2-1.0); URINE WBC 829 /uL (0-25.8)
[2024-01-18 08:33] LABS: URINE BACTERIA MANY /hpf (NEGATIVE)
[2024-01-18] MEDS ORDERED: SODIUM CHLORIDE 250 ML IV PRN (10:37)
[2024-01-18 15:05] VITALS: TEMP 97.6
[2024-01-18] MEDS: COLLAGENASE CLOSTRIDIUM HIST. 30 GRAMS TUBE TP SCH (17:05)
[2024-01-18 18:12] VITALS: RESP 18
[2024-01-18 18:15] VITALS: BP 165/109; PULSE 70
== END 2024-01-18 22:00 | DRG 100 ==
LOC: JER 10:36 → JERBED 22:45 → J4S 01-16 00:50
PROVIDERS: ADMIT Internal Medicine; ATTEND Internal Medicine
PROC: 5A1D70Z Performance of Urinary Filtration, Intermittent, Less than 6 Hours Per Day (ICD-10-PCS; principal; 2024-01-18)
DX: G40.909 Epilepsy, unspecified, not intractable, without status epilepticus (principal); L89.613 Pressure ulcer of right heel, stage 3; N18.6 End stage renal disease; R53.2 Functional quadriplegia; I13.2 Hypertensive heart and chronic kidney disease with heart failure and with stage 5 chronic kidney disease, or end stage renal disease; I69.354 Hemiplegia and hemiparesis following cerebral infarction affecting left non-dominant side; E44.0 Moderate protein-calorie malnutrition; D64.9 Anemia, unspecified; E11.22 Type 2 diabetes mellitus with diabetic chronic kidney disease; I50.9 Heart failure, unspecified; Z99.2 Dependence on renal dialysis; I25.10 Atherosclerotic heart disease of native coronary artery without angina pectoris; F32.A Depression, unspecified; L89.620 Pressure ulcer of left heel, unstageable
CPT/HCPCS: 36415; 70450-TC; 71045-TC-FY; 80053; 80061; 80164; 81003; 82550; 82962; 83036; 84443; 84484; 85025; 85610; 85730; 86850; 86900; 86901; 93005; 93010; 99291

== ENCOUNTER 2024-02-02 01:08 | Emergency (ER) | payer OTHER ==
[2024-02-02 01:27] VITALS: BP 158/93; PULSE 84; RESP 17; TEMP 97.9; BMI 20.5
[2024-02-02 02:45] LABS: BASO % 0.6 % (0-2.0); EOS % 0.7 % (0-4.5); HEMATOCRIT 30.1 % (35.4-49); HEMOGLOBIN 9.6 GM/dL (11.7-16.9); LYMPH % 9.1 % (8-40); MCH 27.9 pg (25.7-33.7); MEAN CELL VOLUME 87.1 fl (80-96); MEAN PLT VOLUME 7.7 fl (7.5-11.1); MONO % 17.3 % (3.8-10.2); NEUT % 72.3 % (42.8-82.8); PLATELET COUNT 189 10^3/uL (134-434); RBC 3.45 M/mm3 (4.00-5.60); RDW 20.7 % (11.9-15.9); WHITE BLOOD COUNT 7.8 K/mm3 (4.0-10.0)
[2024-02-02 03:08] LABS: CHLORIDE 104 mmol/L (98-107); POTASSIUM 4.5 mmol/L (3.5-5.1); SODIUM 138 mmol/L (136-145)
[2024-02-02 03:10] LABS: ANION GAP 9 mmol/L (4-13); CALCIUM 8.3 mg/dL (8.5-10.1); CO2 25 mmol/L (21-32); GLUCOSE,RANDOM 56 mg/dL (74-106)
[2024-02-02 03:11] LABS: ALBUMIN 1.3 g/dl (3.4-5.0)
[2024-02-02 03:14] LABS: CREATININE 3.1 mg/dL (0.55-1.3); SGOT/AST 52 U/L (15-37)
[2024-02-02 03:15] LABS: BILIRUBIN,TOTAL 0.4 mg/dL (0.2-1); TOT PROT 7.3 g/dl (6.4-8.2)
[2024-02-02 03:16] LABS: ALK PHOS 119 U/L (45-117)
[2024-02-02 03:41] LABS: SGPT/ALT < 6 U/L (13-61)
[2024-02-02 04:01] LABS: ANISOCYTOSIS 2+
== END 2024-02-02 06:38 ==
LOC: JER 01:08
DX: R41.82 Altered mental status, unspecified (principal)
CPT/HCPCS: 36415; 70450-TC; 71045-TC-FY; 80053; 83605; 84484; 85025; 93005; 93010; 99285-25

== ENCOUNTER 2024-02-03 21:09 | Inpatient (IN) | payer OTHER ==
[2024-02-03 21:15] VITALS: BMI 17.4
[2024-02-03 21:50] LABS: VENOUS BASE EXCESS 3.6 mmol/L (-2-2); VENOUS O2 SATURATION 79.8 % (70-80); VENOUS PCO2 52.7 mmHg (38-52); VENOUS PH 7.368 (7.310-7.410)
[2024-02-03 21:52] LABS: HEMATOCRIT 28.7 % (35.4-49); HEMOGLOBIN 9.1 GM/dL (11.7-16.9); MCH 27.7 pg (25.7-33.7); MCHC 31.6 g/dl (32.0-35.9); MEAN CELL VOLUME 87.4 fl (80-96); PLATELET COUNT 172 10^3/uL (134-434); RBC 3.28 M/mm3 (4.00-5.60)
[2024-02-03 21:53] LABS: ADD RBC MORPHOLOGY YES
[2024-02-03 21:58] LABS: INR 2.87 (0.83-1.09); PROTHROMBIN TIME (PATIENT) 31.5 SEC (9.7-13.0)
[2024-02-03 22:00] LABS: ACTIVATED PTT 61.4 SECONDS (25.2-36.5)
[2024-02-03] MEDS ORDERED: ACETAMINOPHEN INJECTION 100 ML IVPB ONE (22:13)
[2024-02-03] MEDS: ACETAMINOPHEN 1000 MG/100 ML BAG IVPB ONE (22:25)
[2024-02-03 22:27] LABS: ANISOCYTOSIS 0; MACROCYTOSIS 0
[2024-02-03 22:46] LABS: CHLORIDE 102 mmol/L (98-107); SODIUM 137 mmol/L (136-145)
[2024-02-03 22:48] LABS: CALCIUM 7.9 mg/dL (8.5-10.1)
[2024-02-03 22:49] LABS: ALBUMIN 1.3 g/dl (3.4-5.0); BLOOD UREA NITROGEN 8.8 mg/dL (7-18); CO2 27 mmol/L (21-32); GLUCOSE,RANDOM 88 mg/dL (74-106); MAGNESIUM 1.8 mg/dL (1.8-2.4)
[2024-02-03 22:52] LABS: PHOSPHOROUS 1.5 mg/dL (2.5-4.9); SGOT/AST 17 U/L (15-37)
[2024-02-03 22:53] LABS: ANION GAP 9 mmol/L (4-13); BILIRUBIN,TOTAL 0.3 mg/dL (0.2-1); POTASSIUM 2.9 mmol/L (3.5-5.1); SGPT/ALT < 6 U/L (13-61); TOT PROT 7.2 g/dl (6.4-8.2)
[2024-02-03 22:55] LABS: ALK PHOS 124 U/L (45-117)
[2024-02-03] MEDS: POTASSIUM CHLORIDE TABS 20 MEQ TABLET.ER (FP) PO ONE (23:00)
[2024-02-03] MEDS: POTASSIUM CHLORIDE ORAL LIQUID 20 MEQ/15 ML PO ONE (23:12)
[2024-02-03] MEDS: SODIUM CHLORIDE 0.9% 500 ML INFUS.BAG IV ONE (23:55)
[2024-02-04] MEDS ORDERED: KCL 10 MEQ IVPB 20 MEQ/200 ML INFUS.BAG IVPB ONE (00:01)
[2024-02-04] MEDS: KCL 10 MEQ IVPB 10 MEQ/100 ML INFUS.BAG IVPB SCH (00:27)
[2024-02-04] MEDS: SODIUM CHLORIDE 0.9% 500 ML INFUS.BAG IV ONE (00:33)
[2024-02-04] MEDS ORDERED: AZITHROMYCIN IVPB 500 MG/250 ML BAG IVPB ONE (01:23)
[2024-02-04] MEDS: AZITHROMYCIN IVPB 500 MG in DEXTROSE 5%-WATER - 250 ML IVPB ONE (02:30)
[2024-02-04] MEDS ORDERED: POVIDONE-IODINE 10% SOLN 118 ML BOTTLE TP PRN (04:10)
[2024-02-04] MEDS: PIPERACILLIN/TAZOB 3.375 GM 3.375 GM in DEXTROSE 5%-WATER - 50 ML IVPB SCH ×2 (05:09→12:03)
[2024-02-04] MEDS: VANCOMYCIN/WATER FOR INJ (PEG) 1,000 MG/200 ML BAG IVPB SCH (05:58)
[2024-02-04] MEDS: INSULIN ASPART SLIDING SCALE (NOVOLOG) 1 VIAL SQ SCH (06:15)
[2024-02-04] MEDS: VALPROATE SODIUM 250 MG/5 ML UNIT DOSE CUP PO SCH ×2 (06:16→14:44)
[2024-02-04 07:23] LABS: CHLORIDE 100 mmol/L (98-107); SODIUM 137 mmol/L (136-145)
[2024-02-04 07:27] LABS: ANION GAP 11 mmol/L (4-13); CO2 25 mmol/L (21-32)
[2024-02-04 07:28] LABS: ALBUMIN 1.3 g/dl (3.4-5.0); CALCIUM 8.4 mg/dL (8.5-10.1); GLUCOSE,RANDOM 76 mg/dL (74-106); SGPT/ALT < 6 U/L (13-61)
[2024-02-04 07:41] LABS: ALK PHOS 114 U/L (45-117); BILIRUBIN,TOTAL 0.3 mg/dL (0.2-1); CREATININE 2.5 mg/dL (0.55-1.3); SGOT/AST 14 U/L (15-37); TOT PROT 6.9 g/dl (6.4-8.2)
[2024-02-04] MEDS: THIAMINE 100 MG TABLET PO SCH (11:09)
[2024-02-04] MEDS: VITAMIN B COMP W-C 1 EA TABLET (NEPHRO-VITE) PO SCH (11:09)
[2024-02-04] MEDS: SERTRALINE HCL 25 MG TABLET (FP) PO SCH (11:09)
[2024-02-04] MEDS: APIXABAN 2.5 MG TABLET PO SCH (11:09)
[2024-02-04] MEDS ORDERED: DEXTROSE 50%-WATER 25 GM/50 ML DISP.SYRIN ONE (11:55)
[2024-02-04] MEDS: DEXTROSE 50%-WATER - 25 GM/50 ML VIAL IVPUSH ONE (12:01)
[2024-02-04] MEDS: VANCOMYCIN 1,000 MG in DEXTROSE 5%-WATER - 250 ML IVPB SCH (12:02)
[2024-02-04] MEDS: CEFEPIME HCL 2 GM VIAL (RESTRICTED TO ID) IVPB SCH ×2 (14:33→14:34)
[2024-02-04] MEDS: VANCOMYCIN 500 MG in DEXTROSE 5%-WATER - 100 ML IVPB SCH (14:34)
[2024-02-04] MEDS: COLLAGENASE CLOSTRIDIUM HIST. 30 GRAMS TUBE TP SCH (18:07)
[2024-02-04] MEDS ORDERED: VALPROATE SODIUM 500 MG/5 ML VIAL IVPB SCH (22:00)
[2024-02-04] MEDS: traZODone HCL 50 MG TABLET (FP) PO SCH (22:43)
[2024-02-04] MEDS: VALPROATE SODIUM INJECTION 750 MG in SODIUM CHLORIDE 100 ML IVPB SCH (22:44)
[2024-02-05] MEDS: DEXTROSE 50%-WATER 25 GM/50 ML DISP.SYRIN IVPUSH ONE (06:18)
[2024-02-05] MEDS ORDERED: SODIUM CHLORIDE 250 ML IV PRN (08:54)
[2024-02-05 13:37] LABS: HEMATOCRIT 26.7 % (35.4-49); HEMOGLOBIN 8.5 GM/dL (11.7-16.9); MCH 27.5 pg (25.7-33.7); MEAN PLT VOLUME 7.3 fl (7.5-11.1); PLATELET COUNT 212 10^3/uL (134-434); RDW 20.3 % (11.9-15.9); WHITE BLOOD COUNT 8.4 K/mm3 (4.0-10.0)
[2024-02-05] MEDS: EPOETIN ALFA-EPBX 3,000 UNIT, EPOETIN ALFA-EPBX 2,000 UNIT IVPUSH ONE (13:40)
[2024-02-05] MEDS ORDERED: EPOETIN ALFA-EPBX 10,000 UNIT/ML VIAL IVPUSH ONE (14:00)
[2024-02-05 14:04] LABS: ALBUMIN 1.2 g/dl (3.4-5.0); ALK PHOS 107 U/L (45-117); ANION GAP 12 mmol/L (4-13); BILIRUBIN,TOTAL 0.4 mg/dL (0.2-1); BLOOD UREA NITROGEN 20.6 mg/dL (7-18); CALCIUM 8.4 mg/dL (8.5-10.1); CHLORIDE 103 mmol/L (98-107); CO2 23 mmol/L (21-32); CREATININE 3.9 mg/dL (0.55-1.3); GLUCOSE,RANDOM 69 mg/dL (74-106); POTASSIUM 2.8 mmol/L (3.5-5.1); SGOT/AST 9 U/L (15-37); SGPT/ALT < 6 U/L (13-61); SODIUM 138 mmol/L (136-145); TOT PROT 6.6 g/dl (6.4-8.2)
[2024-02-05] MEDS: AMINO ACIDS 4.25%/D5W 1,000 ML IV SCH (17:33)
[2024-02-05] MEDS ORDERED: WATER IVPB SCH (20:00)
[2024-02-05] MEDS ORDERED: DEXTROSE 5% IVPB SCH (20:00)
[2024-02-05] MEDS ORDERED: CEFEPIME IVPB SCH (20:00)
[2024-02-05] MEDS: CEFEPIME IVPB ONE (20:04)
[2024-02-05] MEDS: DEXTROSE 5% IVPB ONE (20:04)
[2024-02-05] MEDS: WATER IVPB ONE (20:04)
[2024-02-05] MEDS: VANCOMYCIN 500 MG in DEXTROSE 5%-WATER 100 ML IVPB NR (21:36)
[2024-02-05] MEDS ORDERED: VANCOMYCIN 500 MG in DEXTROSE 5%-WATER 100 ML IVPB ONE (22:00)
[2024-02-06 09:01] LABS: HEMATOCRIT 27.2 % (35.4-49); HEMOGLOBIN 8.6 GM/dL (11.7-16.9); MCH 27.7 pg (25.7-33.7); MCHC 31.5 g/dl (32.0-35.9); MEAN CELL VOLUME 88.2 fl (80-96); MEAN PLT VOLUME 7.8 fl (7.5-11.1); PLATELET COUNT 217 10^3/uL (134-434); RBC 3.08 M/mm3 (4.00-5.60); RDW 21.2 % (11.9-15.9); WHITE BLOOD COUNT 8.1 K/mm3 (4.0-10.0)
[2024-02-06 09:17] LABS: CHLORIDE 101 mmol/L (98-107); SODIUM 139 mmol/L (136-145)
[2024-02-06 09:19] LABS: ALBUMIN 1.2 g/dl (3.4-5.0); CALCIUM 8.4 mg/dL (8.5-10.1)
[2024-02-06 09:20] LABS: BLOOD UREA NITROGEN 13.4 mg/dL (7-18); CO2 31 mmol/L (21-32); GLUCOSE,RANDOM 85 mg/dL (74-106)
[2024-02-06 09:23] LABS: CREATININE 2.7 mg/dL (0.55-1.3); PHOSPHOROUS 1.4 mg/dL (2.5-4.9); SGOT/AST 10 U/L (15-37); SGPT/ALT < 6 U/L (13-61)
[2024-02-06 09:24] LABS: BILIRUBIN,TOTAL 0.4 mg/dL (0.2-1); TOT PROT 6.7 g/dl (6.4-8.2)
[2024-02-06 09:26] LABS: ALK PHOS 103 U/L (45-117)
[2024-02-06] MEDS: EPOETIN ALFA-EPBX 10,000 UNIT/ML VIAL SQ ONE (09:26)
[2024-02-06 09:58] LABS: ANISOCYTOSIS 2+; MACROCYTOSIS 0; TARGET CELLS 1+
[2024-02-06 11:21] LABS: ANION GAP 7 mmol/L (4-13); POTASSIUM 2.8 mmol/L (3.5-5.1)
[2024-02-06] MEDS: POTASSIUM PHOSPHATE 45 MM in SODIUM CHLORIDE 500 ML IVPB ONE (13:40)
[2024-02-06] MEDS: MIRTAZAPINE 15 MG TABLET (FP) PO SCH (21:14)
[2024-02-06] MEDS: HEPARIN NA (PORCINE) 5,000 UNITS/ML 1ML VIAL SQ SCH (21:14)
[2024-02-07] MEDS: DEXTROSE 50%-WATER 25 GM/50 ML DISP.SYRIN IVPUSH PRN (05:30)
[2024-02-07] MEDS: SODIUM PHOSPHATE - 15 MM in DEXTROSE 5%-WATER - 250 ML IVPB ONE (09:48)
[2024-02-07] MEDS: POTASSIUM CHLORIDE ORAL LIQUID 20 MEQ/15 ML PO ONE (09:49)
[2024-02-07] MEDS: D5-NS + 20 MEQ KCL - 20 MEQ/1,000 ML INFUS.BAG IV SCH (13:33)
[2024-02-07] MEDS: ACETAMINOPHEN 1000 MG/100 ML BAG IVPB ONE (16:25)
[2024-02-07 16:48] LABS: BASO % 0.6 % (0-2.0); EOS % 0.4 % (0-4.5); HEMATOCRIT 27.8 % (35.4-49); HEMOGLOBIN 8.8 GM/dL (11.7-16.9); LYMPH % 16.3 % (8-40); MCH 27.8 pg (25.7-33.7); MCHC 31.9 g/dl (32.0-35.9); MEAN CELL VOLUME 87.4 fl (80-96); MEAN PLT VOLUME 7.6 fl (7.5-11.1); MONO % 17.6 % (3.8-10.2); NEUT % 65.1 % (42.8-82.8); PLATELET COUNT 214 10^3/uL (134-434); RBC 3.18 M/mm3 (4.00-5.60); RDW 20.7 % (11.9-15.9); WHITE BLOOD COUNT 7.1 K/mm3 (4.0-10.0)
[2024-02-07 17:48] LABS: ALBUMIN 1.1 g/dl (3.4-5.0); ALK PHOS 92 U/L (45-117); ANION GAP 10 mmol/L (4-13); BILIRUBIN,TOTAL 0.5 mg/dL (0.2-1); CALCIUM 7.4 mg/dL (8.5-10.1); CHLORIDE 102 mmol/L (98-107); CO2 24 mmol/L (21-32); GLUCOSE,RANDOM 95 mg/dL (74-106); SGOT/AST 9 U/L (15-37); SGPT/ALT < 6 U/L (13-61); SODIUM 136 mmol/L (136-145); TOT PROT 6.3 g/dl (6.4-8.2)
[2024-02-07 18:03] LABS: MAGNESIUM 1.6 mg/dL (1.8-2.4)
[2024-02-07 18:09] LABS: PHOSPHOROUS 5.2 mg/dL (2.5-4.9)
[2024-02-08 10:42] LABS: BASO % 0.5 % (0-2.0); EOS % 0.7 % (0-4.5); HEMATOCRIT 26.8 % (35.4-49); HEMOGLOBIN 8.5 GM/dL (11.7-16.9); LYMPH % 16.8 % (8-40); MCH 28.1 pg (25.7-33.7); MCHC 31.8 g/dl (32.0-35.9); MEAN CELL VOLUME 88.3 fl (80-96); MEAN PLT VOLUME 7.9 fl (7.5-11.1); MONO % 15.2 % (3.8-10.2); NEUT % 66.8 % (42.8-82.8); PLATELET COUNT 203 10^3/uL (134-434); RBC 3.03 M/mm3 (4.00-5.60); RDW 21.1 % (11.9-15.9); WHITE BLOOD COUNT 6.3 K/mm3 (4.0-10.0)
[2024-02-08] MEDS ORDERED: SODIUM CHLORIDE 250 ML IV PRN (10:56)
[2024-02-08] MEDS: EPOETIN ALFA-EPBX 3,000 UNIT, EPOETIN ALFA-EPBX 2,000 UNIT IVPUSH ONE (11:18)
[2024-02-08 11:21] LABS: ALBUMIN 1.1 g/dl (3.4-5.0); ANION GAP 12 mmol/L (4-13); BILIRUBIN,TOTAL 0.4 mg/dL (0.2-1); BLOOD UREA NITROGEN 31.4 mg/dL (7-18); CALCIUM 7.3 mg/dL (8.5-10.1); CHLORIDE 106 mmol/L (98-107); CO2 23 mmol/L (21-32); CREATININE 4.2 mg/dL (0.55-1.3); GLUCOSE,RANDOM 69 mg/dL (74-106); MAGNESIUM 1.7 mg/dL (1.8-2.4); PHOSPHOROUS 4.4 mg/dL (2.5-4.9); POTASSIUM 4.1 mmol/L (3.5-5.1); SGOT/AST 13 U/L (15-37); SGPT/ALT < 6 U/L (13-61); SODIUM 140 mmol/L (136-145)
[2024-02-08 11:29] LABS: ALK PHOS 93 U/L (45-117)
[2024-02-08] MEDS: VANCOMYCIN/WATER FOR INJ (PEG) 1,000 MG/200 ML BAG IVPB ONE (13:22)
[2024-02-08] MEDS: CEFEPIME 2 GM in DEXTROSE 5%-WATER 100 ML IVPB ONE (13:24)
[2024-02-08] MEDS ORDERED: DEXTROSE 50%-WATER 25 GM/50 ML DISP.SYRIN ONE (13:54)
[2024-02-08] MEDS ORDERED: DEXTROSE 50%-WATER - 25 GM/50 ML VIAL IVPUSH PRN (13:55)
[2024-02-08] MEDS: DEXTROSE 50%-WATER - 25 GM/50 ML VIAL IVPUSH ONE (14:00)
[2024-02-08] MEDS ORDERED: CEFEPIME 2 GM in DEXTROSE 5%-WATER 100 ML IVPB SCH (20:00)
[2024-02-09] MEDS: EPOETIN ALFA-EPBX 4,000 UNIT/ML VIAL IVPUSH ONE (09:07)
[2024-02-09] MEDS: ACETAMINOPHEN 1000 MG/100 ML BAG IVPB PRN (13:48)
[2024-02-10] MEDS ORDERED: SODIUM CHLORIDE 250 ML IV PRN (08:13)
[2024-02-10 09:51] LABS: HEMOGLOBIN 8.1 GM/dL (11.7-16.9); MCH 28.2 pg (25.7-33.7); MCHC 32.2 g/dl (32.0-35.9); MEAN CELL VOLUME 87.7 fl (80-96); MEAN PLT VOLUME 7.8 fl (7.5-11.1); PLATELET COUNT 188 10^3/uL (134-434); RBC 2.85 M/mm3 (4.00-5.60); RDW 21.5 % (11.9-15.9); WHITE BLOOD COUNT 5.5 K/mm3 (4.0-10.0)
[2024-02-10 09:59] LABS: CHLORIDE 101 mmol/L (98-107); POTASSIUM 3.7 mmol/L (3.5-5.1); SODIUM 138 mmol/L (136-145)
[2024-02-10 10:07] LABS: CREATININE 3.9 mg/dL (0.55-1.3); PHOSPHOROUS 3.1 mg/dL (2.5-4.9)
[2024-02-10 10:08] LABS: ALBUMIN 1.1 g/dl (3.4-5.0); BILIRUBIN,TOTAL 0.4 mg/dL (0.2-1); GLUCOSE,RANDOM 56 mg/dL (74-106); TOT PROT 5.8 g/dl (6.4-8.2)
[2024-02-10 10:09] LABS: BLOOD UREA NITROGEN 29.6 mg/dL (7-18)
[2024-02-10 10:10] LABS: ALK PHOS 90 U/L (45-117)
[2024-02-10 10:11] LABS: ANION GAP 11 mmol/L (4-13); CALCIUM 7.8 mg/dL (8.5-10.1); CO2 27 mmol/L (21-32); SGOT/AST 9 U/L (15-37)
[2024-02-10 10:12] LABS: MAGNESIUM 1.6 mg/dL (1.8-2.4)
[2024-02-10 10:14] LABS: SGPT/ALT < 6 U/L (13-61)
[2024-02-10] MEDS: EPOETIN ALFA-EPBX 10,000 UNIT/ML VIAL IVPUSH ONE (11:29)
[2024-02-10 13:01] LABS: ANISOCYTOSIS 0; MACROCYTOSIS 0
[2024-02-10] MEDS ORDERED: DEXTROSE 50%-WATER 25 GM/50 ML DISP.SYRIN IVPUSH PRN (13:54)
[2024-02-10] MEDS: DEXTROSE 50%-WATER 25 GM/50 ML DISP.SYRIN IVPUSH ONE (14:11)
[2024-02-10] MEDS: MAGNESIUM SULF 50% (8.12 MEQ/2 ML-1 GM VIAL) IVPB ONE (16:54)
[2024-02-10 17:01] LABS: INR 2.61 (0.83-1.09); PROTHROMBIN TIME (PATIENT) 29.2 SEC (9.7-13.0)
[2024-02-10] MEDS: CEFEPIME 2 GM in DEXTROSE 5%-WATER 100 ML IVPB ONE (18:25)
[2024-02-11] MEDS: PHYTONADIONE 10 MG/1 ML AMP SQ ONE (19:39)
[2024-02-11] MEDS: LACTOBACILLUS ACIDOPHILUS 1 TABLET PO SCH (21:23)
[2024-02-11 22:17] LABS: INR 2.04 (0.83-1.09); PROTHROMBIN TIME (PATIENT) 22.6 SEC (9.7-13.0)
[2024-02-12 08:04] LABS: BASO % 0.7 % (0-2.0); EOS % 0.7 % (0-4.5); HEMATOCRIT 27.6 % (35.4-49); HEMOGLOBIN 8.7 GM/dL (11.7-16.9); LYMPH % 15.7 % (8-40); MCHC 31.4 g/dl (32.0-35.9); MEAN CELL VOLUME 89.1 fl (80-96); MONO % 11.6 % (3.8-10.2); NEUT % 71.3 % (42.8-82.8); PLATELET COUNT 195 10^3/uL (134-434); RDW 21.9 % (11.9-15.9); WHITE BLOOD COUNT 7.1 K/mm3 (4.0-10.0)
[2024-02-12 08:28] LABS: CHLORIDE 99 mmol/L (98-107); POTASSIUM 3.4 mmol/L (3.5-5.1); SODIUM 137 mmol/L (136-145)
[2024-02-12 08:32] LABS: ALBUMIN 1.1 g/dl (3.4-5.0); ANION GAP 10 mmol/L (4-13); BLOOD UREA NITROGEN 29.5 mg/dL (7-18); CALCIUM 8.3 mg/dL (8.5-10.1); CO2 28 mmol/L (21-32); GLUCOSE,RANDOM 99 mg/dL (74-106); MAGNESIUM 2.1 mg/dL (1.8-2.4)
[2024-02-12 08:36] LABS: CREATININE 3.7 mg/dL (0.55-1.3); PHOSPHOROUS 1.4 mg/dL (2.5-4.9); SGOT/AST 13 U/L (15-37)
[2024-02-12 08:38] LABS: ALK PHOS 98 U/L (45-117); BILIRUBIN,TOTAL 0.3 mg/dL (0.2-1); TOT PROT 6.1 g/dl (6.4-8.2)
[2024-02-12 08:41] LABS: INR 1.53 (0.83-1.09); PROTHROMBIN TIME (PATIENT) 17.4 SEC (9.7-13.0)
[2024-02-12 08:45] LABS: SGPT/ALT < 6 U/L (13-61)
[2024-02-12] MEDS: EPOETIN ALFA-EPBX 4,000 UNIT/ML VIAL IVPUSH ONE (10:14)
[2024-02-12] MEDS ORDERED: SODIUM CHLORIDE 250 ML IV PRN (11:00)
[2024-02-12] MEDS: WATER IVPB ONE (14:04)
[2024-02-12] MEDS: CEFEPIME IVPB ONE (14:04)
[2024-02-12] MEDS: DEXTROSE 5% IVPB ONE (14:04)
[2024-02-12 14:58] VITALS: RESP 18
[2024-02-12 19:09] VITALS: BP 95/53; PULSE 77; TEMP 98.8
== END 2024-02-12 19:15 | DRG 205 ==
LOC: JER 21:09 → JERBED 23:56 → J4S 02-04 02:45 → OBSVTOIN 02-04 14:43
PROVIDERS: ADMIT Internal Medicine; ATTEND Internal Medicine
PROC: 5A1D70Z Performance of Urinary Filtration, Intermittent, Less than 6 Hours Per Day (ICD-10-PCS; principal; 2024-02-05)
PROC: 5A1D70Z Performance of Urinary Filtration, Intermittent, Less than 6 Hours Per Day (ICD-10-PCS; 2024-02-08)
PROC: 5A1D70Z Performance of Urinary Filtration, Intermittent, Less than 6 Hours Per Day (ICD-10-PCS; 2024-02-10)
PROC: 5A1D70Z Performance of Urinary Filtration, Intermittent, Less than 6 Hours Per Day (ICD-10-PCS; 2024-02-12)
DX: R09.02 Hypoxemia (principal); E43 Unspecified severe protein-calorie malnutrition; N18.6 End stage renal disease; I69.354 Hemiplegia and hemiparesis following cerebral infarction affecting left non-dominant side; M86.8X6 Other osteomyelitis, lower leg; Z68.1 Body mass index [BMI] 19.9 or less, adult; I13.2 Hypertensive heart and chronic kidney disease with heart failure and with stage 5 chronic kidney disease, or end stage renal disease; E11.22 Type 2 diabetes mellitus with diabetic chronic kidney disease; I50.32 Chronic diastolic (congestive) heart failure; E78.5 Hyperlipidemia, unspecified; K21.9 Gastro-esophageal reflux disease without esophagitis; F32.A Depression, unspecified; I25.10 Atherosclerotic heart disease of native coronary artery without angina pectoris; G40.909 Epilepsy, unspecified, not intractable, without status epilepticus; D64.9 Anemia, unspecified; L89.152 Pressure ulcer of sacral region, stage 2; E11.51 Type 2 diabetes mellitus with diabetic peripheral angiopathy without gangrene; L89.620 Pressure ulcer of left heel, unstageable; E11.69 Type 2 diabetes mellitus with other specified complication; E11.649 Type 2 diabetes mellitus with hypoglycemia without coma; E87.6 Hypokalemia; E83.39 Other disorders of phosphorus metabolism; Z99.2 Dependence on renal dialysis; Z95.5 Presence of coronary angioplasty implant and graft
CPT/HCPCS: 0241U-QW; 36415; 70450-TC; 71045-TC-FY; 80053; 82803; 82947; 82962; 83605; 83735; 83970; 84100; 84484; 85025; 85027; 85610; 85730; 86704; 86803; 87340; 87517; 93005; 93010; 93971-TC; 99285-25; G0378; G0480; J0131; J1644; Q5106

== ENCOUNTER 2024-02-29 01:17 | Inpatient (IN) | payer OTHER ==
[2024-02-29] MEDS ORDERED: PIPERACILLIN/TAZOB 4.5 GM 4.5 GM/100 ML BAG IVPB ONE ×2 (02:08→16:10)
[2024-02-29] MEDS ORDERED: ACETAMINOPHEN INJECTION 100 ML ONE ×2 (02:08→11:58)
[2024-02-29 02:15] LABS: BASO % 0.7 % (0-2.0); EOS % 0.3 % (0-4.5); HEMATOCRIT 30.4 % (35.4-49); HEMOGLOBIN 9.5 GM/dL (11.7-16.9); MCH 27.9 pg (25.7-33.7); MCHC 31.4 g/dl (32.0-35.9); MEAN CELL VOLUME 88.9 fl (80-96); MEAN PLT VOLUME 7.8 fl (7.5-11.1); PLATELET COUNT 212 10^3/uL (134-434); RBC 3.41 M/mm3 (4.00-5.60); RDW 20.8 % (11.9-15.9); WHITE BLOOD COUNT 8.8 K/mm3 (4.0-10.0)
[2024-02-29 02:16] LABS: VENOUS BASE EXCESS 1.8 mmol/L (-2-2); VENOUS O2 SATURATION 87.4 % (70-80); VENOUS PCO2 39.3 mmHg (38-52); VENOUS PH 7.439 (7.310-7.410)
[2024-02-29] MEDS: ACETAMINOPHEN 1000 MG/100 ML BAG IVPB ONE ×2 (02:21→11:58)
[2024-02-29] MEDS: LACTATED RINGERS SOLUTION 1000 ML INFUS.BAG IV ONE (02:22)
[2024-02-29] MEDS: ASPIRIN 81 MG CHEWABLE TABLETS PO ONE (02:23)
[2024-02-29 02:25] LABS: INR 1.32 (0.83-1.09); PROTHROMBIN TIME (PATIENT) 15.1 SEC (9.7-13.0)
[2024-02-29 02:28] LABS: ACTIVATED PTT 41.6 SECONDS (25.2-36.5)
[2024-02-29] MEDS: PIPERACILLIN/TAZOB 4.5 GM 4.5 GM in DEXTROSE 5%-WATER 100 ML IVPB ONE (02:46)
[2024-02-29 02:59] LABS: CHLORIDE 104 mmol/L (98-107); SODIUM 142 mmol/L (136-145)
[2024-02-29 03:01] LABS: CALCIUM 8.9 mg/dL (8.5-10.1)
[2024-02-29 03:02] LABS: ALBUMIN 1.2 g/dl (3.4-5.0); ANION GAP 13 mmol/L (4-13); BLOOD UREA NITROGEN 34.9 mg/dL (7-18); CO2 25 mmol/L (21-32); GLUCOSE,RANDOM 80 mg/dL (74-106)
[2024-02-29 03:05] LABS: SGOT/AST 24 U/L (15-37)
[2024-02-29 03:07] LABS: BILIRUBIN,TOTAL 0.6 mg/dL (0.2-1); TOT PROT 7.3 g/dl (6.4-8.2)
[2024-02-29 03:08] LABS: ALK PHOS 89 U/L (45-117)
[2024-02-29 03:10] LABS: N-TERMINAL BNP 29251.7 pg/ml (5-125)
[2024-02-29 03:19] LABS: SGPT/ALT < 6 U/L (13-61)
[2024-02-29] MEDS ORDERED: VANCOMYCIN 1 GRAM (PRE-DOCKED) 1,000 MG/250 ML BAG IVPB ONE ×2 (03:19→16:11)
[2024-02-29] MEDS: VANCOMYCIN 1,000 MG in DEXTROSE 5%-WATER - 250 ML IVPB ONE (03:27)
[2024-02-29 04:29] LABS: MAGNESIUM 2.3 mg/dL (1.8-2.4)
[2024-02-29 04:33] LABS: PHOSPHOROUS 2.7 mg/dL (2.5-4.9)
[2024-02-29 04:35] LABS: CHLORIDE 105 mmol/L (98-107); SODIUM 143 mmol/L (136-145)
[2024-02-29 04:36] LABS: CALCIUM 8.5 mg/dL (8.5-10.1)
[2024-02-29 04:37] LABS: BLOOD UREA NITROGEN 35.4 mg/dL (7-18); CO2 26 mmol/L (21-32); GLUCOSE,RANDOM 118 mg/dL (74-106)
[2024-02-29 04:39] LABS: ANISOCYTOSIS 2+
[2024-02-29 04:40] LABS: CREATININE 4.9 mg/dL (0.55-1.3)
[2024-02-29 05:54] LABS: ANION GAP 13 mmol/L (4-13); POTASSIUM 2.7 mmol/L (3.5-5.1)
[2024-02-29] MEDS ORDERED: MAGNESIUM SULFATE IN WATER 2 GM/50 ML IVPB IVPB ONE (06:28)
[2024-02-29] MEDS ORDERED: KCL 10 MEQ IVPB 10 MEQ/100 ML INFUS.BAG IVPB ONE ×2 (06:30→08:10)
[2024-02-29] MEDS ORDERED: MAGNESIUM SULF 50% (8.12 MEQ/2 ML-1 GM VIAL) ONE (06:31)
[2024-02-29] MEDS: KCL 10 MEQ IVPB 10 MEQ/100 ML INFUS.BAG IVPB SCH (06:40)
[2024-02-29] MEDS ORDERED: MAGNESIUM 1GM/D5W - 1 GM/100 ML IVPB IVPB ONE (09:51)
[2024-02-29] MEDS: MAGNESIUM SULF 50% (8.12 MEQ/2 ML-1 GM VIAL) IVPB ONE (10:13)
[2024-02-29] MEDS ORDERED: HEPARIN NA (PORCINE) 5,000 UNITS/ML 1ML VIAL ONE (16:11)
[2024-02-29] MEDS: PIPERACILLIN/TAZOB 4.5 GM 4.5 GM in DEXTROSE 5%-WATER 100 ML IVPB SCH ×2 (16:14→16:47)
[2024-02-29] MEDS: HEPARIN NA (PORCINE) 5,000 UNITS/ML 1ML VIAL SQ SCH (16:14)
[2024-02-29] MEDS: VANCOMYCIN 1 GRAM (PRE-DOCKED) 1,000 MG/250 ML BAG IVPB SCH (16:26)
[2024-02-29] MEDS: traZODone HCL 50 MG TABLET (FP) PO SCH (22:08)
[2024-02-29] MEDS: APIXABAN 2.5 MG TABLET PO SCH (22:08)
[2024-02-29] MEDS: INSULIN ASPART SLIDING SCALE (NOVOLOG) 1 VIAL SQ SCH (22:09)
[2024-02-29] MEDS: VALPROATE SODIUM 250 MG/5 ML UNIT DOSE CUP PO SCH (22:09)
[2024-02-29] MEDS: ACETAMINOPHEN 1000 MG/100 ML BAG IVPB PRN (22:09)
[2024-03-01] MEDS: VANCOMYCIN/WATER FOR INJ (PEG) 1,000 MG/200 ML BAG IVPB SCH ×2 (03:19→17:37)
[2024-03-01] MEDS: KCL 10 MEQ IVPB 10 MEQ/100 ML INFUS.BAG IVPB SCH ×2 (06:38→16:22)
[2024-03-01] MEDS: DEXTROSE 50%-WATER 25 GM/50 ML DISP.SYRIN IVPUSH ONE (06:38)
[2024-03-01] MEDS ORDERED: SODIUM CHLORIDE 250 ML IV PRN (07:54)
[2024-03-01] MEDS: CALCIUM CARBONATE 650 MG TABLET PO SCH (09:40)
[2024-03-01] MEDS: SERTRALINE HCL 25 MG TABLET (FP) PO SCH (09:41)
[2024-03-01] MEDS: VITAMIN B COMP W-C 1 EA TABLET (NEPHRO-VITE) PO SCH (09:41)
[2024-03-01] MEDS ORDERED: VIT B12 PO SCH (10:00)
[2024-03-01] MEDS ORDERED: CAL PO SCH (10:00)
[2024-03-01] MEDS ORDERED: VIT B6 PO SCH (10:00)
[2024-03-01] MEDS ORDERED: FOLIC ACID PO SCH (10:00)
[2024-03-01] MEDS ORDERED: THIAMINE 100 MG TABLET PO SCH (10:00)
[2024-03-01] MEDS ORDERED: [UNRECOGNIZED DRUG - OTHER] PO SCH (10:00)
[2024-03-01 10:28] LABS: HEMATOCRIT 27.5 % (35.4-49); HEMOGLOBIN 8.6 GM/dL (11.7-16.9); MCH 27.9 pg (25.7-33.7); MCHC 31.3 g/dl (32.0-35.9); MEAN CELL VOLUME 88.9 fl (80-96); MEAN PLT VOLUME 7.9 fl (7.5-11.1); PLATELET COUNT 191 10^3/uL (134-434); RBC 3.09 M/mm3 (4.00-5.60); RDW 20.7 % (11.9-15.9)
[2024-03-01 10:40] LABS: CHLORIDE 101 mmol/L (98-107); SODIUM 138 mmol/L (136-145)
[2024-03-01] MEDS: COLLAGENASE CLOSTRIDIUM HIST. 30 GRAMS TUBE TP SCH (10:41)
[2024-03-01 10:44] LABS: ALBUMIN 1.1 g/dl (3.4-5.0); CALCIUM 8.5 mg/dL (8.5-10.1)
[2024-03-01 10:45] LABS: ANION GAP 12 mmol/L (4-13); BLOOD UREA NITROGEN 46.3 mg/dL (7-18); CO2 24 mmol/L (21-32); GLUCOSE,RANDOM 109 mg/dL (74-106)
[2024-03-01 10:47] LABS: MAGNESIUM 2.6 mg/dL (1.8-2.4); SGPT/ALT < 6 U/L (13-61)
[2024-03-01 10:49] LABS: BILIRUBIN,TOTAL 0.4 mg/dL (0.2-1); CREATININE 5.6 mg/dL (0.55-1.3); PHOSPHOROUS 2.9 mg/dL (2.5-4.9); SGOT/AST 6 U/L (15-37)
[2024-03-01 10:50] LABS: ALK PHOS 80 U/L (45-117)
[2024-03-01 10:53] LABS: TOT PROT 6.4 g/dl (6.4-8.2)
[2024-03-01] MEDS: ALBUMIN HUMAN 25% 12.5 GM/50 ML VIAL IV SCH (13:00)
[2024-03-01] MEDS: EPOETIN ALFA-EPBX 4,000 UNIT/ML VIAL IVPUSH ONE (13:30)
[2024-03-01] MEDS: POTASSIUM CHLORIDE ORAL LIQUID 20 MEQ/15 ML PO ONE (16:10)
[2024-03-01 16:28] VITALS: BMI 28.8
[2024-03-01] MEDS: AMINO ACIDS/PROTEIN HYDROLYS 30 ML LIQUID.PKT PO SCH (17:36)
[2024-03-01] MEDS: PIPERACILLIN/TAZOB 4.5 GM 4.5 GM in DEXTROSE 5%-WATER 100 ML IVPB SCH (17:37)
[2024-03-01] MEDS: PIPERACILLIN/TAZOB 3.375 GM 3.375 GM in DEXTROSE 5%-WATER - 50 ML IVPB SCH (23:14)
[2024-03-01] MEDS: ATORVASTATIN CA 20 MG TABLET (FP) PO SCH (23:16)
[2024-03-02] MEDS: VANCOMYCIN/WATER FOR INJ (PEG) 1,000 MG/200 ML BAG IVPB SCH (02:08)
[2024-03-02 08:32] LABS: MAGNESIUM 2.4 mg/dL (1.8-2.4)
[2024-03-02 09:54] LABS: POTASSIUM PLASMA 3.1 mmol/L (3.5-5.1)
[2024-03-02] MEDS: ASPIRIN 81 MG CHEWABLE TABLETS PO SCH (10:37)
[2024-03-02] MEDS: ACETAMINOPHEN 1000 MG/100 ML BAG IVPB ONE (15:37)
[2024-03-02] MEDS ORDERED: VALPROATE SODIUM 500 MG/5 ML VIAL IVPB SCH (18:37)
[2024-03-02] MEDS: POTASSIUM CHLORIDE ORAL LIQUID 20 MEQ/15 ML PO ONE (19:48)
[2024-03-02] MEDS: KCL 10 MEQ IVPB 10 MEQ/100 ML INFUS.BAG IVPB SCH ×2 (20:18→23:34)
[2024-03-03] MEDS: VALPROATE SODIUM INJECTION 750 MG in SODIUM CHLORIDE 100 ML IVPB SCH (00:27)
[2024-03-03] MEDS ORDERED: SODIUM CHLORIDE 250 ML IV PRN (08:29)
[2024-03-03 08:30] LABS: BASO % 0.9 % (0-2.0); EOS % 3.1 % (0-4.5); HEMATOCRIT 25.3 % (35.4-49); LYMPH % 20.7 % (8-40); MCH 28.2 pg (25.7-33.7); MCHC 31.6 g/dl (32.0-35.9); MEAN CELL VOLUME 89.1 fl (80-96); MEAN PLT VOLUME 8.5 fl (7.5-11.1); MONO % 9.5 % (3.8-10.2); NEUT % 65.8 % (42.8-82.8); PLATELET COUNT 193 10^3/uL (134-434); RBC 2.84 M/mm3 (4.00-5.60); RDW 20.7 % (11.9-15.9); WHITE BLOOD COUNT 6.8 K/mm3 (4.0-10.0)
[2024-03-03 08:53] LABS: CHLORIDE 103 mmol/L (98-107); SODIUM 142 mmol/L (136-145)
[2024-03-03 08:56] LABS: ALBUMIN 1.3 g/dl (3.4-5.0); ANION GAP 11 mmol/L (4-13); BLOOD UREA NITROGEN 34.5 mg/dL (7-18); CALCIUM 8.5 mg/dL (8.5-10.1); CO2 28 mmol/L (21-32); GLUCOSE,RANDOM 93 mg/dL (74-106)
[2024-03-03 08:59] LABS: SGOT/AST 5 U/L (15-37); SGPT/ALT < 6 U/L (13-61)
[2024-03-03 09:00] LABS: CREATININE 4.1 mg/dL (0.55-1.3)
[2024-03-03 09:01] LABS: BILIRUBIN,TOTAL 0.5 mg/dL (0.2-1); TOT PROT 5.8 g/dl (6.4-8.2)
[2024-03-03 09:02] LABS: ALK PHOS 97 U/L (45-117)
[2024-03-03] MEDS ORDERED: KCL 10 MEQ IVPB 10 MEQ/100 ML INFUS.BAG IVPB SCH (09:15)
[2024-03-03 09:19] LABS: ANISOCYTOSIS 1+
[2024-03-03] MEDS: EPOETIN ALFA-EPBX 3,000 UNIT, EPOETIN ALFA-EPBX 2,000 UNIT IVPUSH ONE (10:06)
[2024-03-03] MEDS: KCL 10 MEQ IVPB 10 MEQ/100 ML INFUS.BAG IVPB SCH (13:04)
[2024-03-03] MEDS: ACETAMINOPHEN 325 MG TABLET (FP) PO ONE (17:05)
[2024-03-03] MEDS: guaiFENesin 200 MG/10 ML 10 ML UNIT-DOSE CUPS PO PRN (17:05)
[2024-03-03] MEDS: PANTOPRAZOLE 40 MG TABLET PO SCH (17:05)
[2024-03-03] MEDS ORDERED: EPOETIN ALFA-EPBX 4,000 UNIT/ML VIAL IVPUSH ONE (20:39)
[2024-03-03 22:58] VITALS: RESP 18
[2024-03-04 07:08] LABS: BASO % 1.3 % (0-2.0); EOS % 1.4 % (0-4.5); HEMATOCRIT 25.3 % (35.4-49); HEMOGLOBIN 7.9 GM/dL (11.7-16.9); LYMPH % 25.4 % (8-40); MCH 28.2 pg (25.7-33.7); MCHC 31.4 g/dl (32.0-35.9); MEAN CELL VOLUME 89.9 fl (80-96); MEAN PLT VOLUME 8.3 fl (7.5-11.1); MONO % 9.7 % (3.8-10.2); NEUT % 62.2 % (42.8-82.8); PLATELET COUNT 217 10^3/uL (134-434); RBC 2.82 M/mm3 (4.00-5.60); RDW 20.6 % (11.9-15.9); WHITE BLOOD COUNT 7.2 K/mm3 (4.0-10.0)
[2024-03-04 07:24] LABS: CHLORIDE 104 mmol/L (98-107); POTASSIUM 3.4 mmol/L (3.5-5.1); SODIUM 142 mmol/L (136-145)
[2024-03-04 07:27] LABS: CALCIUM 8.6 mg/dL (8.5-10.1)
[2024-03-04 07:28] LABS: ALBUMIN 1.3 g/dl (3.4-5.0); ANION GAP 7 mmol/L (4-13); BLOOD UREA NITROGEN 16.5 mg/dL (7-18); CO2 32 mmol/L (21-32); GLUCOSE,RANDOM 73 mg/dL (74-106)
[2024-03-04 07:31] LABS: CREATININE 2.6 mg/dL (0.55-1.3); SGOT/AST 5 U/L (15-37); SGPT/ALT < 6 U/L (13-61)
[2024-03-04 07:33] LABS: BILIRUBIN,TOTAL 0.4 mg/dL (0.2-1); TOT PROT 6.3 g/dl (6.4-8.2)
[2024-03-04 07:34] LABS: ALK PHOS 110 U/L (45-117)
[2024-03-04] MEDS: POTASSIUM CHLORIDE TABS 20 MEQ TABLET.ER (FP) PO ONE (11:57)
[2024-03-04 15:03] VITALS: BP 90/73; PULSE 72; TEMP 97.7
[2024-03-04] MEDS: DEXTROSE 4 GM TAB.CHEW PO PRN (16:38)
[2024-03-05] MEDS ORDERED: AMOX TR/POT CLAV 500MG/125MG TABLETS (FP) PO SCH (10:00)
== END 2024-03-04 18:48 | DRG 193 ==
LOC: JER 01:17 → JERBED 06:08 → J4S 18:51
PROVIDERS: ADMIT Internal Medicine; ATTEND Nurse Practitioner Family
PROC: 5A1D70Z Performance of Urinary Filtration, Intermittent, Less than 6 Hours Per Day (ICD-10-PCS; principal; 2024-03-03)
DX: J18.9 Pneumonia, unspecified organism (principal); E43 Unspecified severe protein-calorie malnutrition; L89.623 Pressure ulcer of left heel, stage 3; L89.613 Pressure ulcer of right heel, stage 3; N18.6 End stage renal disease; I21.4 Non-ST elevation (NSTEMI) myocardial infarction; I69.354 Hemiplegia and hemiparesis following cerebral infarction affecting left non-dominant side; I13.2 Hypertensive heart and chronic kidney disease with heart failure and with stage 5 chronic kidney disease, or end stage renal disease; I50.32 Chronic diastolic (congestive) heart failure; E11.621 Type 2 diabetes mellitus with foot ulcer; I25.10 Atherosclerotic heart disease of native coronary artery without angina pectoris; Z95.1 Presence of aortocoronary bypass graft; Z95.5 Presence of coronary angioplasty implant and graft; E78.5 Hyperlipidemia, unspecified; K21.9 Gastro-esophageal reflux disease without esophagitis; Z99.2 Dependence on renal dialysis
CPT/HCPCS: 0241U-QW; 36415; 70450-TC; 71045-TC-FY; 71250-TC; 80048; 80053; 82803; 82962; 83605; 83735; 83880; 84100; 84132; 84484; 85025; 85027; 85610; 85730; 86850; 86900; 86901; 87040; 87635; 93005; 93010; 93306-TC; 99285-25; J0131; J1644; P9047; Q5106

== ENCOUNTER 2024-03-11 18:45 | Inpatient (IN) | payer OTHER ==
[2024-03-11 20:02] VITALS: BMI 26.9
[2024-03-11] MEDS ORDERED: ACETAMINOPHEN INJECTION 100 ML ONE (21:40)
[2024-03-11 21:46] LABS: BASO % 0.3 % (0-2.0); EOS % 0.6 % (0-4.5); HEMATOCRIT 32.3 % (35.4-49); HEMOGLOBIN 10.1 GM/dL (11.7-16.9); LYMPH % 9.3 % (8-40); MCH 27.9 pg (25.7-33.7); MCHC 31.3 g/dl (32.0-35.9); MEAN CELL VOLUME 89.2 fl (80-96); MEAN PLT VOLUME 7.7 fl (7.5-11.1); NEUT % 79.8 % (42.8-82.8); PLATELET COUNT 272 10^3/uL (134-434); RBC 3.62 M/mm3 (4.00-5.60); RDW 20.7 % (11.9-15.9); WHITE BLOOD COUNT 8.6 K/mm3 (4.0-10.0)
[2024-03-11] MEDS: ACETAMINOPHEN 1000 MG/100 ML BAG IVPB ONE (21:46)
[2024-03-11 22:26] LABS: POTASSIUM 4.8 mmol/L (3.5-5.1)
[2024-03-11 22:29] LABS: ALBUMIN 1.4 g/dl (3.4-5.0); BLOOD UREA NITROGEN 9.6 mg/dL (7-18); CALCIUM 8.5 mg/dL (8.5-10.1); MAGNESIUM 2.2 mg/dL (1.8-2.4)
[2024-03-11 22:32] LABS: ANISOCYTOSIS 2+; CREATININE 2.3 mg/dL (0.55-1.3); MACROCYTOSIS 0; TARGET CELLS 1+
[2024-03-11 22:33] LABS: PHOSPHOROUS 2.2 mg/dL (2.5-4.9)
[2024-03-11 22:34] LABS: BILIRUBIN,TOTAL 0.5 mg/dL (0.2-1); TOT PROT 7.7 g/dl (6.4-8.2)
[2024-03-11 22:37] LABS: N-TERMINAL BNP 28677.3 pg/ml (5-125)
[2024-03-11 23:32] LABS: CHLORIDE 100 mmol/L (98-107); SODIUM 137 mmol/L (136-145)
[2024-03-11 23:33] LABS: CALCIUM 8.1 mg/dL (8.5-10.1)
[2024-03-11 23:34] LABS: BLOOD UREA NITROGEN 10.3 mg/dL (7-18); CO2 27 mmol/L (21-32); GLUCOSE,RANDOM 109 mg/dL (74-106)
[2024-03-11 23:36] LABS: ANION GAP 11 mmol/L (4-13); POTASSIUM 2.7 mmol/L (3.5-5.1)
[2024-03-11 23:37] LABS: CREATININE 2.2 mg/dL (0.55-1.3)
[2024-03-12] MEDS ORDERED: POTASSIUM CHLORIDE ORAL LIQUID 20 MEQ/15 ML ONE (00:16)
[2024-03-12] MEDS: POTASSIUM CHLORIDE ORAL LIQUID 20 MEQ/15 ML PO ONE (00:23)
[2024-03-12] MEDS: KCL 10 MEQ IVPB 10 MEQ/100 ML INFUS.BAG IVPB SCH (00:56)
[2024-03-12] MEDS ORDERED: KCL 10 MEQ IVPB 30 MEQ/300 ML INFUS.BAG IVPB ONE (02:36)
[2024-03-12 04:46] LABS: POTASSIUM 4.6 mmol/L (3.5-5.1)
[2024-03-12 04:47] LABS: CALCIUM 8.2 mg/dL (8.5-10.1)
[2024-03-12 04:48] LABS: BLOOD UREA NITROGEN 11.4 mg/dL (7-18)
[2024-03-12 04:51] LABS: CREATININE 2.2 mg/dL (0.55-1.3)
[2024-03-12] MEDS ORDERED: PATIENT'S OWN MEDICATION (NON-FORMULARY) (Oxycodone Hcl [Oxycodone Hcl] 5 MG Capsule) PO PRN (06:50)
[2024-03-12] MEDS ORDERED: POVIDONE-IODINE 10% SOLN 118 ML BOTTLE TP PRN (06:50)
[2024-03-12] MEDS: PANTOPRAZOLE 40 MG TABLET PO SCH (07:09)
[2024-03-12] MEDS: VALPROATE SODIUM 250 MG/5 ML UNIT DOSE CUP PO SCH (07:43)
[2024-03-12] MEDS: INSULIN ASPART SLIDING SCALE (NOVOLOG) 1 VIAL SQ SCH (08:04)
[2024-03-12 09:00] LABS: BASO % 0.8 % (0-2.0); EOS % 1.1 % (0-4.5); HEMATOCRIT 30.8 % (35.4-49); HEMOGLOBIN 9.6 GM/dL (11.7-16.9); LYMPH % 14.8 % (8-40); MCHC 31.3 g/dl (32.0-35.9); MEAN CELL VOLUME 89.2 fl (80-96); MEAN PLT VOLUME 7.7 fl (7.5-11.1); MONO % 8.7 % (3.8-10.2); NEUT % 74.6 % (42.8-82.8); PLATELET COUNT 270 10^3/uL (134-434); RBC 3.45 M/mm3 (4.00-5.60); RDW 20.8 % (11.9-15.9); WHITE BLOOD COUNT 8.7 K/mm3 (4.0-10.0)
[2024-03-12] MEDS ORDERED: oxyCODONE HCL 5 MG TABLET PO PRN (09:55)
[2024-03-12] MEDS ORDERED: VIT B6 PO SCH (10:00)
[2024-03-12] MEDS ORDERED: VIT B12 PO SCH (10:00)
[2024-03-12] MEDS ORDERED: [UNRECOGNIZED DRUG - OTHER] PO SCH (10:00)
[2024-03-12] MEDS ORDERED: PATIENT'S OWN MEDICATION (NON-FORMULARY) (Argin/Glut/Cahmb/Collag/Mv-Min [Juven Packet] 1 PO SCH (10:00)
[2024-03-12] MEDS ORDERED: FOLIC ACID PO SCH (10:00)
[2024-03-12] MEDS ORDERED: CAL PO SCH (10:00)
[2024-03-12] MEDS: VITAMIN B COMP W-C 1 EA TABLET (NEPHRO-VITE) PO SCH (13:05)
[2024-03-12] MEDS: APIXABAN 2.5 MG TABLET PO SCH (13:06)
[2024-03-12] MEDS: ASPIRIN 81 MG CHEWABLE TABLETS PO SCH (13:06)
[2024-03-12] MEDS: SERTRALINE HCL 25 MG TABLET (FP) PO SCH (13:07)
[2024-03-12] MEDS: THIAMINE 100 MG TABLET PO SCH (13:07)
[2024-03-12] MEDS: CALCIUM (OYSTER SHELL) 500 MG TABLET (FP) PO SCH (13:07)
[2024-03-12] MEDS: IRON SUCROSE INJECTION 200 MG in SODIUM CHLORIDE 100 ML IVPB ONE (13:07)
[2024-03-12] MEDS ORDERED: DEXTROSE 50%-WATER - 25 GM/50 ML VIAL IVPUSH PRN (18:42)
[2024-03-12] MEDS: traZODone HCL 50 MG TABLET (FP) PO SCH (21:19)
[2024-03-12] MEDS: ATORVASTATIN CA 20 MG TABLET (FP) PO SCH (21:19)
[2024-03-13 08:31] LABS: HEMOGLOBIN 9.1 GM/dL (11.7-16.9); MCH 28.5 pg (25.7-33.7); MCHC 31.5 g/dl (32.0-35.9); MEAN CELL VOLUME 90.3 fl (80-96); MEAN PLT VOLUME 7.7 fl (7.5-11.1); PLATELET COUNT 258 10^3/uL (134-434); RBC 3.21 M/mm3 (4.00-5.60); RDW 20.7 % (11.9-15.9); WHITE BLOOD COUNT 17.2 K/mm3 (4.0-10.0)
[2024-03-13 08:53] LABS: CHLORIDE 101 mmol/L (98-107); POTASSIUM 3.7 mmol/L (3.5-5.1); SODIUM 139 mmol/L (136-145)
[2024-03-13 08:55] LABS: ALBUMIN 1.4 g/dl (3.4-5.0); ANION GAP 12 mmol/L (4-13); BLOOD UREA NITROGEN 16.4 mg/dL (7-18); CALCIUM 8.5 mg/dL (8.5-10.1); CO2 26 mmol/L (21-32)
[2024-03-13 08:56] LABS: GLUCOSE,RANDOM 112 mg/dL (74-106)
[2024-03-13 08:58] LABS: CREATININE 3.5 mg/dL (0.55-1.3); SGOT/AST 9 U/L (15-37)
[2024-03-13 08:59] LABS: PHOSPHOROUS 1.8 mg/dL (2.5-4.9)
[2024-03-13 09:00] LABS: BILIRUBIN,TOTAL 0.6 mg/dL (0.2-1); TOT PROT 6.9 g/dl (6.4-8.2)
[2024-03-13 09:01] LABS: ALK PHOS 125 U/L (45-117); IRON SERUM 18 ug/dL (50-175); RETICULOCYTES 2.01 % (0.5-1.5)
[2024-03-13 09:02] LABS: SGPT/ALT < 6 U/L (13-61); TOTAL IRON BINDING CAPACITY 78 ug/dL (250-450)
[2024-03-13] MEDS: PIPERACILLIN/TAZOB 2.25 GM 2.25 GM in DEXTROSE 5%-WATER - 50 ML IVPB SCH (11:40)
[2024-03-13] MEDS: ACETAMINOPHEN 325 MG TABLET (FP) PO PRN (11:40)
[2024-03-13] MEDS: VANCOMYCIN/WATER FOR INJ (PEG) 1,000 MG/200 ML BAG IVPB ONE (18:48)
[2024-03-13] MEDS: METOPROLOL TARTRATE 25 MG TABLET (FP) PO SCH (21:51)
[2024-03-14] MEDS ORDERED: SODIUM CHLORIDE 250 ML IV PRN (09:25)
[2024-03-14 09:33] LABS: CHLORIDE 102 mmol/L (98-107); POTASSIUM 3.8 mmol/L (3.5-5.1); SODIUM 139 mmol/L (136-145)
[2024-03-14 09:35] LABS: ALBUMIN 1.3 g/dl (3.4-5.0); ANION GAP 11 mmol/L (4-13); BLOOD UREA NITROGEN 22.9 mg/dL (7-18); CO2 27 mmol/L (21-32)
[2024-03-14 09:36] LABS: GLUCOSE,RANDOM 73 mg/dL (74-106)
[2024-03-14 09:38] LABS: CREATININE 4.3 mg/dL (0.55-1.3); SGOT/AST 9 U/L (15-37); SGPT/ALT < 6 U/L (13-61)
[2024-03-14 09:40] LABS: BILIRUBIN,TOTAL 0.4 mg/dL (0.2-1); TOT PROT 6.7 g/dl (6.4-8.2)
[2024-03-14 09:41] LABS: ALK PHOS 120 U/L (45-117)
[2024-03-14 10:08] LABS: BASO % 1.4 % (0-2.0); EOS % 0.2 % (0-4.5); HEMATOCRIT 28.4 % (35.4-49); HEMOGLOBIN 8.9 GM/dL (11.7-16.9); LYMPH % 10.2 % (8-40); MCH 28.5 pg (25.7-33.7); MCHC 31.4 g/dl (32.0-35.9); MEAN CELL VOLUME 90.8 fl (80-96); MEAN PLT VOLUME 7.7 fl (7.5-11.1); MONO % 8.7 % (3.8-10.2); NEUT % 79.5 % (42.8-82.8); PLATELET COUNT 217 10^3/uL (134-434); RBC 3.13 M/mm3 (4.00-5.60); RDW 21.2 % (11.9-15.9); WHITE BLOOD COUNT 6.9 K/mm3 (4.0-10.0)
[2024-03-14] MEDS: NAPH,MB-DB/K PH,MBDB POWDER PACKET PO ONE (11:06)
[2024-03-14] MEDS: MIDODRINE HCL 2.5 MG TABLET PO ONE (11:08)
[2024-03-14] MEDS: COLLAGENASE CLOSTRIDIUM HIST. 30 GRAMS TUBE TP SCH (11:17)
[2024-03-14] MEDS: EPOETIN ALFA-EPBX 10,000 UNIT/ML VIAL IVPUSH ONE (11:45)
[2024-03-15 01:45] LABS: EPI CELLS >36 /uL (0-25.1); HYALINE CASTS 112 /uL (0-3.1); PH,URINE 6.5 (5.0-8.0); URINE APPEARANCE TURBID; URINE BACTERIA 8955 /uL (0-1359); URINE BILIRUBIN NEGATIVE (NEGATIVE); URINE COLOR YELLOW; URINE GLUCOSE (UA) NEGATIVE (NEGATIVE); URINE KETONE NEGATIVE (NEGATIVE); URINE LEUK ESTERASE 2+ (NEGATIVE); URINE NITRITE NEGATIVE (NEGATIVE); URINE PROTEIN 2+ (NEGATIVE); URINE RBC 5 /uL (0-23.9); URINE UROBILINOGEN 0.2 mg/dL (0.2-1.0); URINE WBC 83 /uL (0-25.8)
[2024-03-15 07:22] LABS: HEMATOCRIT 28.8 % (35.4-49); HEMOGLOBIN 8.8 GM/dL (11.7-16.9); MCH 28.1 pg (25.7-33.7); MCHC 30.7 g/dl (32.0-35.9); MEAN CELL VOLUME 91.6 fl (80-96); MEAN PLT VOLUME 7.6 fl (7.5-11.1); PLATELET COUNT 210 10^3/uL (134-434); RBC 3.15 M/mm3 (4.00-5.60); RDW 21.7 % (11.9-15.9); WHITE BLOOD COUNT 7.9 K/mm3 (4.0-10.0)
[2024-03-15 07:41] LABS: CHLORIDE 110 mmol/L (98-107); POTASSIUM 3.5 mmol/L (3.5-5.1); SODIUM 146 mmol/L (136-145)
[2024-03-15 07:43] LABS: ALBUMIN 1.3 g/dl (3.4-5.0)
[2024-03-15 07:44] LABS: BLOOD UREA NITROGEN 15.4 mg/dL (7-18); CALCIUM 9.2 mg/dL (8.5-10.1); GLUCOSE,RANDOM 106 mg/dL (74-106)
[2024-03-15 07:45] LABS: ANION GAP 5 mmol/L (4-13); CO2 31 mmol/L (21-32); MAGNESIUM 2.2 mg/dL (1.8-2.4)
[2024-03-15 07:46] LABS: CREATININE 3.1 mg/dL (0.55-1.3)
[2024-03-15 07:47] LABS: PHOSPHOROUS 2.2 mg/dL (2.5-4.9); SGOT/AST 17 U/L (15-37)
[2024-03-15 07:48] LABS: BILIRUBIN,TOTAL 0.4 mg/dL (0.2-1); TOT PROT 6.6 g/dl (6.4-8.2)
[2024-03-15 07:49] LABS: ALK PHOS 115 U/L (45-117)
[2024-03-15 07:53] LABS: SGPT/ALT < 6 U/L (13-61)
[2024-03-15 11:39] LABS: ANISOCYTOSIS 0; MACROCYTOSIS 0
[2024-03-15] MEDS: DEXTROSE 5%-WATER - 1,000 ML IV SCH (17:34)
[2024-03-16 07:19] LABS: BASO % 0.8 % (0-2.0); HEMOGLOBIN 9.2 GM/dL (11.7-16.9); LYMPH % 16.1 % (8-40); MCH 28.1 pg (25.7-33.7); MCHC 30.5 g/dl (32.0-35.9); MEAN PLT VOLUME 7.6 fl (7.5-11.1); MONO % 13.2 % (3.8-10.2); NEUT % 68.9 % (42.8-82.8); PLATELET COUNT 231 10^3/uL (134-434); RBC 3.26 M/mm3 (4.00-5.60); RDW 21.5 % (11.9-15.9); WHITE BLOOD COUNT 9.9 K/mm3 (4.0-10.0)
[2024-03-16 07:36] LABS: CHLORIDE 107 mmol/L (98-107); POTASSIUM 3.4 mmol/L (3.5-5.1); SODIUM 146 mmol/L (136-145)
[2024-03-16 07:39] LABS: ALBUMIN 1.3 g/dl (3.4-5.0); ANION GAP 10 mmol/L (4-13); BLOOD UREA NITROGEN 21.7 mg/dL (7-18); CO2 29 mmol/L (21-32); GLUCOSE,RANDOM 104 mg/dL (74-106); MAGNESIUM 2.1 mg/dL (1.8-2.4)
[2024-03-16 07:43] LABS: CREATININE 4.1 mg/dL (0.55-1.3); PHOSPHOROUS 2.4 mg/dL (2.5-4.9); SGOT/AST 12 U/L (15-37)
[2024-03-16 07:44] LABS: BILIRUBIN,TOTAL 0.5 mg/dL (0.2-1); TOT PROT 6.8 g/dl (6.4-8.2)
[2024-03-16 07:45] LABS: ALK PHOS 110 U/L (45-117)
[2024-03-16 07:53] LABS: SGPT/ALT < 6 U/L (13-61)
[2024-03-16] MEDS: POTASSIUM CHLORIDE ORAL LIQUID 20 MEQ/15 ML PO ONE (09:31)
[2024-03-16] MEDS: NAPH,MB-DB/K PH,MBDB POWDER PACKET PO ONE (09:31)
[2024-03-16] MEDS: AMINO ACIDS/PROTEIN HYDROLYS 30 ML LIQUID.PKT PO SCH ×2 (10:30→17:30)
[2024-03-16] MEDS ORDERED: SODIUM CHLORIDE 250 ML IV PRN (14:05)
[2024-03-16] MEDS: ALBUMIN HUMAN 25% 12.5 GM/50 ML VIAL IV SCH (16:00)
[2024-03-16] MEDS: EPOETIN ALFA-EPBX 4,000 UNIT/ML VIAL SQ ONE (16:30)
[2024-03-16] MEDS: LIDOCAINE VISCOUS 2% ORAL/TOP 15 ML UNIT-DOSE CUP MM SCH (18:34)
[2024-03-16] MEDS ORDERED: DEXTROSE 50%-WATER 25 GM/50 ML DISP.SYRIN IVPUSH PRN (21:44)
[2024-03-16] MEDS: DEXTROSE 50%-WATER 25 GM/50 ML DISP.SYRIN IVPUSH ONE (21:53)
[2024-03-17 11:27] LABS: BASO % 0.7 % (0-2.0); EOS % 1.1 % (0-4.5); HEMOGLOBIN 7.8 GM/dL (11.7-16.9); LYMPH % 13.4 % (8-40); MCHC 31.1 g/dl (32.0-35.9); MEAN CELL VOLUME 90.1 fl (80-96); MEAN PLT VOLUME 7.5 fl (7.5-11.1); MONO % 12.6 % (3.8-10.2); NEUT % 72.2 % (42.8-82.8); PLATELET COUNT 167 10^3/uL (134-434); RBC 2.77 M/mm3 (4.00-5.60); WHITE BLOOD COUNT 7.5 K/mm3 (4.0-10.0)
[2024-03-17 11:46] LABS: CHLORIDE 99 mmol/L (98-107); POTASSIUM 3.6 mmol/L (3.5-5.1); SODIUM 138 mmol/L (136-145)
[2024-03-17 11:49] LABS: BLOOD UREA NITROGEN 12.9 mg/dL (7-18); CALCIUM 8.7 mg/dL (8.5-10.1); MAGNESIUM 1.9 mg/dL (1.8-2.4)
[2024-03-17 11:50] LABS: ANION GAP 10 mmol/L (4-13); CO2 29 mmol/L (21-32); GLUCOSE,RANDOM 132 mg/dL (74-106)
[2024-03-17 11:51] LABS: ALBUMIN 1.7 g/dl (3.4-5.0); SGOT/AST 9 U/L (15-37)
[2024-03-17 11:53] LABS: BILIRUBIN,TOTAL 0.5 mg/dL (0.2-1); CREATININE 2.5 mg/dL (0.55-1.3); PHOSPHOROUS 1.3 mg/dL (2.5-4.9); TOT PROT 6.1 g/dl (6.4-8.2)
[2024-03-17 11:54] LABS: ALK PHOS 105 U/L (45-117)
[2024-03-17 12:15] LABS: SGPT/ALT < 6 U/L (13-61)
[2024-03-17] MEDS ORDERED: CEFTRIAXONE 2 GM-D5W BAG 2 GM/50 ML BAG IVPB SCH (14:45)
[2024-03-17] MEDS: CEFTRIAXONE 2 GM in DEXTROSE 5%-WATER 100 ML IVPB SCH (15:18)
[2024-03-18] MEDS ORDERED: INSULIN ASPART SLIDING SCALE (NOVOLOG) 1 VIAL SQ ONE (07:06)
[2024-03-18] MEDS ORDERED: SODIUM CHLORIDE 250 ML IV PRN (07:38)
[2024-03-18] MEDS: EPOETIN ALFA-EPBX 4,000 UNIT/ML VIAL IVPUSH ONE (08:55)
[2024-03-18 08:56] LABS: BASO % 0.6 % (0-2.0); EOS % 0.6 % (0-4.5); HEMATOCRIT 24.3 % (35.4-49); HEMOGLOBIN 7.6 GM/dL (11.7-16.9); LYMPH % 11.6 % (8-40); MCHC 31.4 g/dl (32.0-35.9); MEAN CELL VOLUME 89.2 fl (80-96); MEAN PLT VOLUME 7.4 fl (7.5-11.1); NEUT % 75.2 % (42.8-82.8); PLATELET COUNT 159 10^3/uL (134-434); RBC 2.73 M/mm3 (4.00-5.60); RDW 20.8 % (11.9-15.9); WHITE BLOOD COUNT 8.6 K/mm3 (4.0-10.0)
[2024-03-18 09:17] LABS: CHLORIDE 100 mmol/L (98-107); POTASSIUM 3.6 mmol/L (3.5-5.1); SODIUM 137 mmol/L (136-145)
[2024-03-18 09:19] LABS: ALBUMIN 1.4 g/dl (3.4-5.0); ANION GAP 8 mmol/L (4-13); BLOOD UREA NITROGEN 18.4 mg/dL (7-18); CALCIUM 8.8 mg/dL (8.5-10.1); CO2 29 mmol/L (21-32); GLUCOSE,RANDOM 99 mg/dL (74-106)
[2024-03-18 09:20] LABS: MAGNESIUM 1.8 mg/dL (1.8-2.4)
[2024-03-18 09:22] LABS: CREATININE 3.1 mg/dL (0.55-1.3); PHOSPHOROUS 1.3 mg/dL (2.5-4.9)
[2024-03-18 09:23] LABS: SGOT/AST 8 U/L (15-37)
[2024-03-18 09:24] LABS: BILIRUBIN,TOTAL 0.4 mg/dL (0.2-1); TOT PROT 5.5 g/dl (6.4-8.2)
[2024-03-18 09:25] LABS: ALK PHOS 97 U/L (45-117)
[2024-03-18 09:56] LABS: SGPT/ALT < 6 U/L (13-61)
[2024-03-18 10:22] LABS: ANISOCYTOSIS 2+; MACROCYTOSIS 0
[2024-03-18] MEDS: NAPH,MB-DB/K PH,MBDB POWDER PACKET PO SCH (12:30)
[2024-03-18] MEDS: guaiFENesin 200 MG/10 ML 10 ML UNIT-DOSE CUPS PO PRN (13:20)
[2024-03-19] MEDS ORDERED: DEXTROSE 50%-WATER 25 GM/50 ML DISP.SYRIN ONE (07:02)
[2024-03-19] MEDS: DEXTROSE 50%-WATER 25 GM/50 ML DISP.SYRIN IVPUSH ONE (08:50)
[2024-03-19 11:46] LABS: CHLORIDE 94 mmol/L (98-107); POTASSIUM 4.3 mmol/L (3.5-5.1); SODIUM 134 mmol/L (136-145)
[2024-03-19 11:48] LABS: CALCIUM 9.1 mg/dL (8.5-10.1)
[2024-03-19 11:49] LABS: ANION GAP 9 mmol/L (4-13); CO2 31 mmol/L (21-32); GLUCOSE,RANDOM 256 mg/dL (74-106); MAGNESIUM 1.9 mg/dL (1.8-2.4)
[2024-03-19 11:50] LABS: ALBUMIN 1.6 g/dl (3.4-5.0)
[2024-03-19 11:51] LABS: SGPT/ALT < 6 U/L (13-61)
[2024-03-19 11:52] LABS: CREATININE 2.5 mg/dL (0.55-1.3); PHOSPHOROUS 2.6 mg/dL (2.5-4.9); SGOT/AST 18 U/L (15-37)
[2024-03-19 11:53] LABS: BILIRUBIN,TOTAL 0.4 mg/dL (0.2-1)
[2024-03-19 11:56] LABS: ALK PHOS 136 U/L (45-117)
[2024-03-20 12:01] LABS: POTASSIUM 3.6 mmol/L (3.5-5.1)
[2024-03-20 12:04] LABS: BASO % 0.4 % (0-2.0); EOS % 0.6 % (0-4.5); HEMATOCRIT 27.3 % (35.4-49); HEMOGLOBIN 8.5 GM/dL (11.7-16.9); LYMPH % 12.8 % (8-40); MCH 28.1 pg (25.7-33.7); MCHC 31.3 g/dl (32.0-35.9); MEAN CELL VOLUME 89.8 fl (80-96); MEAN PLT VOLUME 8.1 fl (7.5-11.1); MONO % 13.9 % (3.8-10.2); NEUT % 72.3 % (42.8-82.8); PLATELET COUNT 200 10^3/uL (134-434); RBC 3.05 M/mm3 (4.00-5.60); RDW 20.7 % (11.9-15.9); WHITE BLOOD COUNT 7.8 K/mm3 (4.0-10.0)
[2024-03-20 12:06] LABS: BLOOD UREA NITROGEN 19.8 mg/dL (7-18); MAGNESIUM 1.8 mg/dL (1.8-2.4)
[2024-03-20 12:09] LABS: CREATININE 3.3 mg/dL (0.55-1.3); PHOSPHOROUS 2.2 mg/dL (2.5-4.9)
[2024-03-20] MEDS: SODIUM CHLORIDE 1,000 ML IV STA (12:17)
[2024-03-20] MEDS ORDERED: SODIUM CHLORIDE 250 ML IV PRN (13:44)
[2024-03-20] MEDS: DEXTROSE 5%-LACTATED RINGERS 1,000 ML IV SCH (14:39)
[2024-03-20] MEDS: AMIKACIN SO4 IVPB ONE (19:28)
[2024-03-20] MEDS: SODIUM CHLORIDE IVPB ONE (19:28)
[2024-03-21] MEDS: DEXTROSE 5%-LACTATED RINGERS 1,000 ML IV SCH (08:53)
[2024-03-21 13:00] LABS: BASO % 0.5 % (0-2.0); EOS % 0.8 % (0-4.5); HEMATOCRIT 34.1 % (35.4-49); HEMOGLOBIN 10.5 GM/dL (11.7-16.9); LYMPH % 19.2 % (8-40); MCH 27.8 pg (25.7-33.7); MCHC 30.7 g/dl (32.0-35.9); MEAN CELL VOLUME 90.6 fl (80-96); MEAN PLT VOLUME 7.7 fl (7.5-11.1); MONO % 13.7 % (3.8-10.2); NEUT % 65.8 % (42.8-82.8); PLATELET COUNT 225 10^3/uL (134-434); RBC 3.76 M/mm3 (4.00-5.60); RDW 21.7 % (11.9-15.9); WHITE BLOOD COUNT 5.8 K/mm3 (4.0-10.0)
[2024-03-21 13:26] LABS: ANISOCYTOSIS 2+; MACROCYTOSIS 0
[2024-03-21 13:28] LABS: CHLORIDE 102 mmol/L (98-107); POTASSIUM 4.2 mmol/L (3.5-5.1); SODIUM 140 mmol/L (136-145)
[2024-03-21 13:32] LABS: ALBUMIN 1.4 g/dl (3.4-5.0); ANION GAP 8 mmol/L (4-13); BLOOD UREA NITROGEN 24.2 mg/dL (7-18); CALCIUM 9.4 mg/dL (8.5-10.1); CO2 30 mmol/L (21-32)
[2024-03-21 13:33] LABS: GLUCOSE,RANDOM 105 mg/dL (74-106)
[2024-03-21 13:35] LABS: CREATININE 3.9 mg/dL (0.55-1.3); SGOT/AST 10 U/L (15-37)
[2024-03-21 13:36] LABS: PHOSPHOROUS 3.2 mg/dL (2.5-4.9)
[2024-03-21 13:37] LABS: BILIRUBIN,TOTAL 0.6 mg/dL (0.2-1); TOT PROT 6.6 g/dl (6.4-8.2)
[2024-03-21 13:38] LABS: ALK PHOS 128 U/L (45-117)
[2024-03-21 13:42] LABS: SGPT/ALT < 6 U/L (13-61)
[2024-03-22] MEDS: EPOETIN ALFA-EPBX 10,000 UNIT/ML VIAL IVPUSH ONE (09:15)
[2024-03-22 10:12] LABS: HEMATOCRIT 28.3 % (35.4-49); HEMOGLOBIN 8.6 GM/dL (11.7-16.9); MCH 27.7 pg (25.7-33.7); MCHC 30.5 g/dl (32.0-35.9); MEAN CELL VOLUME 90.6 fl (80-96); PLATELET COUNT 197 10^3/uL (134-434); RBC 3.12 M/mm3 (4.00-5.60); RDW 20.1 % (11.9-15.9); WHITE BLOOD COUNT 5.6 K/mm3 (4.0-10.0)
[2024-03-22 10:27] LABS: POTASSIUM 3.3 mmol/L (3.5-5.1)
[2024-03-22 10:32] LABS: CALCIUM 8.7 mg/dL (8.5-10.1)
[2024-03-22 10:33] LABS: BLOOD UREA NITROGEN 23.4 mg/dL (7-18)
[2024-03-22 10:35] LABS: CREATININE 3.1 mg/dL (0.55-1.3)
[2024-03-22] MEDS: POTASSIUM CHLORIDE ORAL LIQUID 20 MEQ/15 ML PO ONE (14:28)
[2024-03-22] MEDS: TIGECYCLINE 100 MG in DEXTROSE 5%-WATER - 100 ML IVPB ONE (16:34)
[2024-03-23] MEDS: TIGECYCLINE 50 MG in DEXTROSE 5%-WATER - 100 ML IVPB SCH (04:05)
[2024-03-23 12:58] LABS: BASO % 1.4 % (0-2.0); EOS % 0.4 % (0-4.5); HEMATOCRIT 30.4 % (35.4-49); HEMOGLOBIN 9.4 GM/dL (11.7-16.9); LYMPH % 10.1 % (8-40); MCH 28.2 pg (25.7-33.7); MEAN CELL VOLUME 90.7 fl (80-96); MEAN PLT VOLUME 8.1 fl (7.5-11.1); MONO % 15.3 % (3.8-10.2); NEUT % 72.8 % (42.8-82.8); PLATELET COUNT 223 10^3/uL (134-434); RBC 3.35 M/mm3 (4.00-5.60); RDW 20.5 % (11.9-15.9); WHITE BLOOD COUNT 10.6 K/mm3 (4.0-10.0)
[2024-03-23 13:26] LABS: CHLORIDE 101 mmol/L (98-107); POTASSIUM 4.1 mmol/L (3.5-5.1); SODIUM 139 mmol/L (136-145)
[2024-03-23 13:28] LABS: CALCIUM 8.7 mg/dL (8.5-10.1)
[2024-03-23 13:29] LABS: ALBUMIN 1.2 g/dl (3.4-5.0); ANION GAP 9 mmol/L (4-13); BLOOD UREA NITROGEN 32.3 mg/dL (7-18); CO2 29 mmol/L (21-32); GLUCOSE,RANDOM 166 mg/dL (74-106); MAGNESIUM 1.9 mg/dL (1.8-2.4)
[2024-03-23 13:32] LABS: CREATININE 3.4 mg/dL (0.55-1.3); PHOSPHOROUS 2.3 mg/dL (2.5-4.9); SGOT/AST 7 U/L (15-37)
[2024-03-23 13:33] LABS: BILIRUBIN,TOTAL 0.3 mg/dL (0.2-1)
[2024-03-23 13:34] LABS: TOT PROT 6.1 g/dl (6.4-8.2)
[2024-03-23 13:35] LABS: ALK PHOS 133 U/L (45-117)
[2024-03-23 13:43] LABS: SGPT/ALT < 6 U/L (13-61)
[2024-03-23] MEDS ORDERED: MORPHINE SULFATE/0.9% NACL/PF 100 MG/100 ML BAG IVPB SCH (15:30)
[2024-03-23] MEDS ORDERED: MORPHINE 100 MG/100 ML MG ONE (17:54)
[2024-03-23] MEDS: MORPHINE 100 MG/100 ML MG IVPB SCH (18:07)
[2024-03-24 13:12] VITALS: RESP 12
[2024-03-24] MEDS ORDERED: morphine SULFATE 10 MG/5 ML UNIT-DOSE CUP PO PRN (14:03)
[2024-03-24 19:01] VITALS: BP 86/44; PULSE 0; TEMP 99.1
== END 2024-03-24 21:30 | disposition expired | DRG 871 ==
LOC: JER 18:45 → JERBED 23:23 → J4S 03-12 04:33 → OBSVTOIN 03-12 06:03
PROVIDERS: ADMIT Internal Medicine; ATTEND Internal Medicine
DX: A41.9 Sepsis, unspecified organism (principal); E43 Unspecified severe protein-calorie malnutrition; N18.6 End stage renal disease; R53.2 Functional quadriplegia; I13.2 Hypertensive heart and chronic kidney disease with heart failure and with stage 5 chronic kidney disease, or end stage renal disease; I69.354 Hemiplegia and hemiparesis following cerebral infarction affecting left non-dominant side; I50.32 Chronic diastolic (congestive) heart failure; R64 Cachexia; M86.9 Osteomyelitis, unspecified; N39.0 Urinary tract infection, site not specified; E11.52 Type 2 diabetes mellitus with diabetic peripheral angiopathy with gangrene; R00.1 Bradycardia, unspecified; L89.620 Pressure ulcer of left heel, unstageable; L89.610 Pressure ulcer of right heel, unstageable; F03.90 Unspecified dementia, unspecified severity, without behavioral disturbance, psychotic disturbance, mood disturbance, and anxiety; G40.909 Epilepsy, unspecified, not intractable, without status epilepticus; E11.22 Type 2 diabetes mellitus with diabetic chronic kidney disease; D64.9 Anemia, unspecified; D63.1 Anemia in chronic kidney disease; I25.10 Atherosclerotic heart disease of native coronary artery without angina pectoris; E78.5 Hyperlipidemia, unspecified; R62.7 Adult failure to thrive; E87.6 Hypokalemia; E88.09 Other disorders of plasma-protein metabolism, not elsewhere classified; G20.A1 Parkinson's disease without dyskinesia, without mention of fluctuations; B96.20 Unspecified Escherichia coli [E. coli] as the cause of diseases classified elsewhere; E11.69 Type 2 diabetes mellitus with other specified complication
CPT/HCPCS: 0241U-QW; 36415; 71045-TC-FY; 75635-TC; 80048; 80053; 81003; 82533; 82607; 82728; 82962; 83540; 83550; 83735; 83880; 84100; 84132; 84155; 84165; 84439; 84443; 84484; 85025; 85027; 85045; 87040; 87070; 87086; 87186; 87205; 87340; 93005; 93010; 99285-25; G0378; G0480; J0131; J1756; J3243; P9047; Q5106; Q9967